=== PATIENT | male | born 1950 | race Two or more races ===

== ENCOUNTER 2019-01-22 20:17 | Inpatient (IN) | payer MEDICARE, OTHER ==
[~2019-01-22] VITALS: Ht 167.6 cm; Wt 72.6 kg
[~2019-01-22 20:17] MED LIST: ANTIVERT25 MG ORAL; NO HOME MEDS; ZOFRAN4 M1 ORAL
--- NOTE | 2019-01-22 20:20 | NUR ---
ED Nurse Note: Patient walked into ED accompanied by family member c/o urinary hesitancy that started today, patient states that he is having trouble to control his urine when he does start urinating, rates his pain a 9/10. patient provided a urine sampole which was cloudy, patient is alert and oriented x4, ambulatory with a steady gait, VSS
[2019-01-22 20:40] VITALS: BP 135/91
[2019-01-22] MEDS ORDERED: cefTRIAXone 2 GM in NS 110 ML IV SCH (21:00)
--- NOTE | 2019-01-22 21:09 | Emergency Room Report ---
History of Present Illness General Chief Complaint: Male Urogenital Problems Source: Patient Present Illness HPI Patient is a 60-year-old male presented after increased dysuria and urinary frequency. Patient had been noted to have increased discomfort during urination. He denies any vomiting. He reports having increased frequency as well as foul-smelling urine. He denies any flank pain. He had not been having any hematuria. He had onset of symptoms earlier in the day. Allergies: Coded Allergies: No Known Allergies (Unverified , 01/22/19) Patient History Past Medical History: see triage record Reviewed Nursing Documentation: PMH: Agreed; PSxH: Agreed Nursing Documentation-PMH Hx Hypertension: Yes Physical Exam Vital Signs Date Time Temp Pulse Resp B/P (MAP) Pulse Ox O2 Delivery O2 Flow Rate FiO2 01/22/19 20:37 98.4 92 16 135/91 (106) 94 Room Air Sp02 EP Interpretation: reviewed, normal General Appearance: normal inspection, well appearing, no apparent distress, alert, GCS 15 Head: atraumatic ENT: normal ENT inspection, hearing grossly normal, normal voice Neck: normal inspection, full range of motion, supple, no bony tend Respiratory: normal inspection, lungs clear, normal breath sounds, no respiratory distress, no retraction, no wheezing Cardiovascular #1: regular rate, rhythm, no edema Gastrointestinal: normal inspection, normal bowel sounds, non tender, soft, no guarding, no hernia Genitourinary: no CVA tenderness Musculoskeletal: normal inspection, back normal, normal range of motion Neurologic: normal inspection, alert, oriented x3, responsive, technology manager III-XII nml as tested, speech normal Psychiatric: normal inspection, judgement/insight normal, mood/affect normal Skin: normal inspection, normal color, no rash Medical Decision Making Diagnostic Impression: Primary Impression: Pyelonephritis ER Course Patient presented for dysuria. Differential diagnosis include was not limited to pyelonephritis, urinary tract infection, prostatitis among others. Because of patient's complexity laboratory testing was ordered. Patient does not appear to have any evidence of focal abdominal tenderness.CT imaging of the abdomen pelvis showed prostatic hypertrophy as well as bladder wall thickening consistent with a urinary infection. Patient was noted to have increased white blood count on laboratory testing. Urinalysis showed too numerous to count white blood cells in his urine. Patient was started on IV antibiotics. He was noted to be having some headache and symptomatology consistent with systemic illness. Patient be admitted for further evaluation and treatment of pyelonephritis. Dr. Andrzej Montesinos was contacted for inpatient management due to panel physician. Labs Test 01/22/19 21:17 White Blood Count 16.6 K/UL (4.8-10.8) Red Blood Count 4.58 M/UL (4.70-6.10) Hemoglobin 13.9 G/DL (14.2-18.0) Hematocrit 39.9 % (42.0-52.0) Mean Corpuscular Volume 87 FL (80-99) Mean Corpuscular Hemoglobin 30.4 PG (27.0-31.0) Mean Corpuscular Hemoglobin Concent 34.9 G/DL (32.0-36.0) Red Cell Distribution Width 11.4 % (11.6-14.8) Platelet Count 208 K/UL (150-450) Mean Platelet Volume 5.3 FL (6.5-10.1) Neutrophils (%) (Auto) 76.1 % (45.0-75.0) Lymphocytes (%) (Auto) 13.3 % (20.0-45.0) Monocytes (%) (Auto) 9.9 % (1.0-10.0) Eosinophils (%) (Auto) 0.1 % (0.0-3.0) Basophils (%) (Auto) 0.6 % (0.0-2.0) Urine Color Pale yellow Urine Appearance Cloudy Urine pH 7 (4.5-8.0) Urine Specific [place] 1.005 (1.005-1.035) Urine Protein 2+ (NEGATIVE) Urine Glucose (UA) Negative (NEGATIVE) Urine Ketones Negative (NEGATIVE) Urine Blood 5+ (NEGATIVE) Urine Nitrite Negative (NEGATIVE) Urine Bilirubin Negative (NEGATIVE) Urine Urobilinogen Normal MG/DL (0.0-1.0) Urine Leukocyte Esterase 3+ (NEGATIVE) Urine RBC 30-40 /HPF (0 - 0) Urine WBC Tntc /HPF (0 - 0) Urine Squamous Epithelial Cells None /LPF (NONE/OCC) Urine Bacteria Few /HPF (NONE) EKG Diagnostic Results Rate: normal Rhythm: NSR ST Segments: no acute changes Last Vital Signs Date Time Temp Pulse Resp B/P (MAP) Pulse Ox O2 Delivery O2 Flow Rate FiO2 01/22/19 20:37 98.4 92 16 135/91 (976) 94 Room Air Status: unchanged Disposition: ADMITTED INPATIENT Condition: Stable Alirio Aguilera MD Jan 22, 2019 21:09
[2019-01-22 21:41] LABS: BASOPHILS % (AUTO) 0.6 % (0.0-2.0); EOSINOPHILS % (AUTO) 0.1 % (0.0-3.0); HEMATOCRIT 39.9 % (42.0-52.0); HEMOGLOBIN 13.9 G/DL (14.2-18.0); LYMPHOCYTES % (AUTO) 13.3 % (20.0-45.0); MEAN CORPUSCULAR VOLUME 87 FL (80-99); MONOCYTES % (AUTO) 9.9 % (1.0-10.0); NEUTROPHILS % (AUTO) 76.1 % (45.0-75.0); PLATELET COUNT 208 K/UL (150-450); RED BLOOD COUNT 4.58 M/UL (4.70-6.10); RED CELL DISTRIBUTION WIDTH 11.4 % (11.6-14.8); WHITE BLOOD COUNT 16.6 K/UL (4.8-10.8)
[2019-01-22 21:43] LABS: APPEARANCE,URINE CLOUDY; BILIRUBIN, URINE NEGATIVE (NEGATIVE); COLOR,URINE PALE YELLOW; GLUCOSE, URINE (UA) NEGATIVE (NEGATIVE); KETONES,URINE NEGATIVE (NEGATIVE); LEUKOCYTE ESTERASE ,URINE 3+ (NEGATIVE); NITRITE,URINE NEGATIVE (NEGATIVE); PH,URINE 7 (4.5-8.0); PROTEIN,URINE 2+ (NEGATIVE); UROBILINOGEN,URINE NORMAL MG/DL (0.0-1.0)
[2019-01-22 22:08] LABS: ANION GAP 8 mmol/L (5-15); BLOOD UREA NITROGEN 15 mg/dL (7-18); CALCIUM 9.2 MG/DL (8.5-10.1); CARBON DIOXIDE 27 MMOL/L (21-32); CHLORIDE 98 MMOL/L (98-107); CREATININE 0.9 MG/DL (0.55-1.30); POTASSIUM 3.6 MMOL/L (3.5-5.1); SODIUM 133 MMOL/L (136-145)
[2019-01-22 22:13] LABS: ALANINE AMINOTRANSFERASE 24 U/L (12-78); ALBUMIN 3.9 G/DL (3.4-5.0); ALBUMIN/GLOBULIN RATIO 1.1 (1.0-2.7); ALKALINE PHOSPHATASE 83 U/L (46-116); ASPARTATE AMINO TRANSFERASE 21 U/L (15-37); BILIRUBIN,TOTAL 0.9 MG/DL (0.2-1.0); CKMB 1.2 NG/ML (0.0-3.6); CREATINE KINASE 185 U/L (26-308)
[2019-01-22 22:38] VITALS: BP 132/88
--- NOTE | 2019-01-22 22:38 | NUR ---
ED Nurse Note: PAtient in bed calm and relaxed, voided twice using urinal
--- NOTE | 2019-01-22 22:52 | Diagnostic Imaging Report ---
EXAM: CT Abdomen and Pelvis Without Intravenous Contrast CLINICAL HISTORY: PAIN TECHNIQUE: Axial computed tomography images of the abdomen and pelvis without intravenous contrast. CTDI is 12.2 mGy and DLP is 630 mGy-cm. One or more of the following dose reduction techniques were used: automated exposure control, adjustment of the mA and/or kV according to patient size, use of iterative reconstruction technique. COMPARISON: No relevant prior studies available. FINDINGS: There is prominent motion artifact limiting evaluation. Lack of contrast limits evaluation of viscera. Small hiatal hernia. Atelectasis and/or scar. No urinary tract calculi or hydronephrosis. There are some calcifications in region of the anterior bladder. Possible mural calcifications given these do not layer dependently. Small portion of the hepatic dome is not imaged. No evidence for acute pancreatitis or other acute abnormality of the unenhanced solid viscera is appreciated. There is some mild prostate enlargement. Soft tissue density projecting into the inferior bladder which is suspected to represent enlarged prostate. Prostate calcification. No bowel obstruction. Much of bowel underdistended limiting evaluation for mural thickening. No perienteric inflammatory change appreciated. Diverticulosis. No diverticulitis is appreciated. Questionable portion of normal appendix in the right lower quadrant though degree of confidence is not high and do not feel this exam is sufficient to exclude appendicitis. Nonspecific fluid in small bowel. Osseous degenerative changes. IMPRESSION: No definite acute process identified though there is prominent artifact limiting evaluation. Given degree of artifact, suggest clinical and/or imaging follow-up, as indicated.
[2019-01-22] MEDS ORDERED: Morphine Sulfate 2mg/ml Inj(IV/IM USE ONLY) IVP PRN (23:30)
[2019-01-23] VITALS (7 sets, daily range): BP systolic 107–132; BP diastolic 68–81
--- NOTE | 2019-01-23 00:59 | NUR ---
ED Nurse Note: patient's oral temp of 101.3, notified and aware of temp, will give tylenol
[2019-01-23] MEDS ORDERED: Acetaminophen 650mg/20.3ml NG ONE (01:00)
--- NOTE | 2019-01-23 01:10 | NUR ---
TRANSFER TO FLOOR: Patient transferred to Med Surg as ordered, report given to MARHSA Cook
--- NOTE | 2019-01-23 01:15 | NUR ---
NURSE NOTES: Patient came from ER via [facility]. Report from Ovidio LARSON. A&OX4. IV site patent and intact. Skin intact. Belongings are checked, patient has childs $110($20*5, $10*1), patient refused send safe. Bed in lowest position. Call light within reach. Will continue to monitor.
[2019-01-23] MEDS ORDERED: Morphine Sulfate 2mg/ml Inj(IV/IM USE ONLY) IVP PRN (05:15)
[2019-01-23] MEDS ORDERED: Miralax 17gm pkt ORAL PRN (05:15)
[2019-01-23] MEDS ORDERED: Albuterol/Ipratropium 3ml neb HHN PRN (05:15)
[2019-01-23] MEDS ORDERED: Vancomycin 1 GM in D5W 275 ML IVPB ONE (06:00)
--- NOTE | 2019-01-23 07:30 | NUR ---
HAND-OFF: Report given to Travis Alexis Rn.
[2019-01-23] MEDS: Cefepime HCl 2 GM in D5W 110 ML IV SCH ×2 (09:04→20:05)
[2019-01-23] MEDS: Heparin 5000 units/ml inj SUBQ SCH ×2 (09:13→20:06)
[2019-01-23] MEDS ORDERED: DIOVAN80 MG ORAL (10:29)
--- NOTE | 2019-01-23 10:59 | NUR ---
NURSE NOTES: PT'S FRIEND NETO BROUGHT IN HOME MEDICATION VALSARTAN 160MG PO 1 TABLET DAILY. SABRINA ALCANTAR NP, WITH ORDER TO CONTINUE AND HOLD FOR SBP<120. RN ENTERED ORDER AND SENT MEDICATION TO PHARMACY. RECEIPT NUMBER [id number]. RECEIPT PLACE IN PT'S CHART.
--- NOTE | 2019-01-23 11:00 | NUR ---
NURSE NOTES: RN USED [employer] ID# [id number] TO COMMUNICATE WITH PT. PT WAS EDUCATED ON ADMITTING DIAGNOSES, MEDICATION, AND PLAN OF CARE. PT DENIES PAIN AT THIS TIME. EDUCATED ON HOW TO USE CALL LIGHT FOR ASSISTANCE. IN NO APPARENT DISTRESS AT THIS TIME. WILL CONTINUE TO MONITOR.
[2019-01-23 12:31] LABS: APPEARANCE,URINE CLEAR; BILIRUBIN, URINE NEGATIVE (NEGATIVE); COLOR,URINE PALE YELLOW; GLUCOSE, URINE (UA) NEGATIVE (NEGATIVE); KETONES,URINE NEGATIVE (NEGATIVE); LEUKOCYTE ESTERASE ,URINE 1+ (NEGATIVE); NITRITE,URINE NEGATIVE (NEGATIVE); PH,URINE 7 (4.5-8.0); PROTEIN,URINE NEGATIVE (NEGATIVE); UROBILINOGEN,URINE NORMAL MG/DL (0.0-1.0)
--- NOTE | 2019-01-23 12:45 | History and Physical Report ---
DATE OF ADMISSION: 01/22/2019 TIME SEEN: 9 a.m. CONSULTANTS: 1. Glen Robles M.D. 2. Cuauhtemoc Hair M.D. CHIEF COMPLAINT: Dysuria, fever, and pyelonephritis. BRIEF HISTORY: The patient is a 68-year-old male, who lives at home, presents with the above-mentioned diagnosis, dysuria for a couple of days. The patient came, diagnosed with pyelonephritis and admitted to medical floor for further treatment. Currently, calm in bed. No complaint. No chest pain. No shortness of breath. No nausea, vomiting, or diarrhea. PAST MEDICAL HISTORY: Nothing. PAST SURGICAL HISTORY: None. MEDICATIONS: Include vancomycin, cefepime, heparin, morphine, Tylenol, and Zofran. ALLERGIES: Denies. SOCIAL HISTORY: No smoking. No alcohol. No intravenous drug abuse. FAMILY HISTORY: Noncontributory. PHYSICAL EXAMINATION: GENERAL: Calm in bed, oriented x3, no acute distress. VITAL SIGNS: Temperature is 97 degrees, pulse 79, respirations 18, blood pressure 109/69. CARDIOVASCULAR: No murmur. LUNGS: Distant and clear. ABDOMEN: Bowel sounds positive. Nontender and nondistended. EXTREMITIES: Showed no cyanosis, clubbing or edema. NEUROLOGIC: The patient moves all extremities, slightly weak. LABORATORY AND DIAGNOSTIC DATA: Labs at this time show white count 16, hemoglobin and hematocrit 13/39, platelets 208. BMP shows sodium 133, glucose 114. Albumin 3.9. Urinalysis show 3+ leukocyte esterase. ASSESSMENT: 1. UTI. 2. Pyelonephritis. 3. Fever. PLAN: 1. Antibiotics per Infectious Disease. 2. PT and dietary evaluation. 3. CBC and BMP in the morning. Andrzej Montesinos D.O. DR: RACHEL JOB#: [id number] CC:
--- NOTE | 2019-01-23 13:07 | Consultation ---
Consult Note Consult Note # [id number] Cuauhtemoc Hair MD Jan 23, 2019 13:07
--- NOTE | 2019-01-23 15:29 | Consultation ---
History of Present Illness General Date patient seen: Jan 23, 2019 Time patient seen: 11:00 Chief Complaint: Male Urogenital Problems Referring physician: dr Montesinos Reason for Consultation: inpatietn management Present Illness HPI 68 years old male with past medical history of hypertension , presented with complaints of dysuria and urinary frequency. Patient also reported foul-smelling urine and discomfort during urination. No flank pain. No fever, no chills , no vomiting. No hematuria . Vital signs reveal no fever. Laboratory work-up revealed significant leukocytosis WBC 16.6 , hemoglobin 13.9. Urinalysis with evidence of pyuria , +3 leukocyte esterase and few bacteria. CT of the abdomen and pelvis demonstrated no definite acute process. In emergency department patient pancultured, started on empiric antibiotic and admitted to Med Surg floor for further management. Allergies: Coded Allergies: No Known Allergies (Unverified , 01/22/19) Medication History Scheduled Valsartan (Diovan), 160 MG ORAL DAILY, (Reported) Scheduled PRN Ondansetron (Zofran), 4 MG ORAL Q6H PRN for Nausea & Vomiting, (Reported) Miscellaneous Medications [No Home Meds], (Reported) Discontinued Medications Meclizine Hcl* (Antivert*), 25 MG ORAL Q6HR, (Reported) Discontinued Reason: Pt stopped taking med Patient History History Provided By: Patient Healthcare decision maker Resuscitation status Full Code Advanced Directive on File Review of Systems Constitutional: Reports: weakness Eye: Reports: no symptoms ENT: Reports: no symptoms Respiratory: Reports: no symptoms Cardiovascular: Reports: no symptoms, other - Hx of HTN Gastrointestinal: Reports: no symptoms Genitourinary: Reports: see HPI Musculoskeletal: Reports: no symptoms Skin: Reports: no symptoms Psychiatric: Reports: no symptoms Neurological: Reports: no symptoms Endocrine: Reports: no symptoms Hematologic/Lymphatic: Reports: no symptoms Physical Exam General Appearance: WD/WN, no apparent distress, alert Lines, tubes and drains: peripheral HEENT: normocephalic, atraumatic, anicteric, mucous membranes moist Neck: non-tender, supple Respiratory/Chest: chest wall non-tender, lungs clear, no respiratory distress , no accessory muscle use Cardiovascular/Chest: normal peripheral pulses, normal rate, no JVD Abdomen: normal bowel sounds, non tender, soft Genitourinary/Rectal: other - no CVAT bilaterally Extremities: normal range of motion, no calf tenderness, normal capillary refill Skin Exam: warm/dry Neurologic: no motor/sensory deficits, alert, oriented x 3, responsive Musculoskeletal: normal muscle bulk Last 24 Hour Vital Signs Date Time Temp Pulse Resp B/P (MAP) Pulse Ox O2 Delivery O2 Flow Rate FiO2 01/23/19 12:00 98.7 80 20 127/70 (89) 96 01/23/19 09:00 Room Air 01/23/19 08:00 98.2 78 118/74 (89) 01/23/19 04:00 97.3 79 18 108/69 (82) 95 01/23/19 02:33 Room Air 01/23/19 01:30 98.1 88 18 122/74 (90) 95 01/23/19 01:10 101.0 86 18 132/68 95 Room Air 90 01/23/19 01:02 101.0 90 18 132/68 95 Room Air 01/23/19 01:00 101.0 01/22/19 22:38 98.4 86 16 132/88 94 Room Air 01/22/19 20:40 98.4 86 16 135/91 94 Room Air 01/22/19 20:37 98.4 92 16 135/91 (106) 94 Room Air Intake and Output 01/22/19 01/23/19 19:00 07:00 Intake Total 0 ml Balance 0 ml Intake Oral 0 ml # Voids 2 # Bowel Movements 1 Laboratory Tests Test 01/22/19 21:17 01/23/19 11:00 White Blood Count 16.6 K/UL (4.8-10.8) H Red Blood Count 4.58 M/UL (4.70-6.10) L Hemoglobin 13.9 G/DL (14.2-18.0) L Hematocrit 39.9 % (42.0-52.0) L Mean Corpuscular Volume 87 FL (80-99) Mean Corpuscular Hemoglobin 30.4 PG (27.0-31.0) Mean Corpuscular Hemoglobin Concent 34.9 G/DL (32.0-36.0) Red Cell Distribution Width 11.4 % (11.6-14.8) L Platelet Count 208 K/UL (150-450) Mean Platelet Volume 5.3 FL (6.5-10.1) L Neutrophils (%) (Auto) 76.1 % (45.0-75.0) H Lymphocytes (%) (Auto) 13.3 % (20.0-45.0) L Monocytes (%) (Auto) 9.9 % (1.0-10.0) Eosinophils (%) (Auto) 0.1 % (0.0-3.0) Basophils (%) (Auto) 0.6 % (0.0-2.0) Urine Color Pale yellow Pale yellow Urine Appearance Cloudy Clear Urine pH 7 (4.5-8.0) 7 (4.5-8.0) Urine Specific [place] 1.005 (1.005-1.035) 1.005 (1.005-1.035) Urine Protein 2+ (NEGATIVE) H Negative (NEGATIVE) Urine Glucose (UA) Negative (NEGATIVE) Negative (NEGATIVE) Urine Ketones Negative (NEGATIVE) Negative (NEGATIVE) Urine Blood 5+ (NEGATIVE) H 2+ (NEGATIVE) H Urine Nitrite Negative (NEGATIVE) Negative (NEGATIVE) Urine Bilirubin Negative (NEGATIVE) Negative (NEGATIVE) Urine Urobilinogen Normal MG/DL (0.0-1.0) Normal MG/DL (0.0-1.0) Urine Leukocyte Esterase 3+ (NEGATIVE) H 1+ (NEGATIVE) H Urine RBC 30-40 /HPF (0 - 0) H 0-2 /HPF (0 - 0) H Urine WBC Tntc /HPF (0 - 0) H 2-4 /HPF (0 - 0) Urine Squamous Epithelial Cells None /LPF (NONE/OCC) Occasional /LPF Urine Bacteria Few /HPF (NONE) Occasional /HPF (NONE) Sodium Level 133 MMOL/L (136-145) L Potassium Level 3.6 MMOL/L (3.5-5.1) Chloride Level 98 MMOL/L (98-107) Carbon Dioxide Level 27 MMOL/L (21-32) Anion Gap 8 mmol/L (5-15) Blood Urea Nitrogen 15 mg/dL (7-18) Creatinine 0.9 MG/DL (0.55-1.30) Estimat Glomerular Filtration Rate > 60 mL/min (>60) Glucose Level 114 MG/DL (74-106) H Lactic Acid Level 0.70 mmol/L (0.4-2.0) Calcium Level 9.2 MG/DL (8.5-10.1) Total Bilirubin 0.9 MG/DL (0.2-1.0) Aspartate Amino Transf (AST/SGOT) 21 U/L (15-37) Alanine Aminotransferase (ALT/SGPT) 24 U/L (12-78) Alkaline Phosphatase 83 U/L (46-116) Total Creatine Kinase 185 U/L (26-308) Creatine Kinase MB 1.2 NG/ML (0.0-3.6) Creatine Kinase MB Relative Index 0.6 Total Protein 7.3 G/DL (6.4-8.2) Albumin 3.9 G/DL (3.4-5.0) Globulin 3.4 g/dL Albumin/Globulin Ratio 1.1 (1.0-2.7) Height (Feet): 5 Height (Inches): 6.00 Weight (Pounds): 160 Medications Current Medications Medications (Trade) Dose Ordered Sig/Beltran Route PRN Reason Start Time Stop Time Status Last Admin Dose Admin Acetaminophen (Tylenol) 650 mg Q4H PRN ORAL fever 01/23/19 05:15 02/22/19 05:14 Albuterol/ Ipratropium (Albuterol/ Ipratropium) 3 ml Q4H PRN HHN Shortness of Breath 01/23/19 05:15 01/28/19 05:14 Cefepime HCl 2 gm/ Dextrose 110 ml @ 220 mls/hr EVERY 12 HOURS IV 01/23/19 09:00 01/30/19 08:59 01/23/19 09:04 Heparin Sodium (Porcine) (Heparin 5000 units/ml) 5,000 units EVERY 12 HOURS SUBQ 01/23/19 09:00 02/22/19 08:59 01/23/19 09:13 Losartan Potassium (Cozaar) 50 mg DAILY ORAL 01/24/19 14:30 02/23/19 14:29 UNV Morphine Sulfate (Morphine Sulfate) 2 mg Q4H PRN IVP Moderate Pain (Pain Scale 4-6) 01/23/19 05:15 01/30/19 05:14 Ondansetron HCl (Zofran) 4 mg Q6H PRN IVP Nausea & Vomiting 01/23/19 05:15 02/22/19 05:14 Phenazopyridine HCl (Pyridium) 100 mg DAILY PRN ORAL dysuria 01/23/19 05:15 02/22/19 05:14 Polyethylene Glycol (Miralax) 17 gm DAILYPRN PRN ORAL Constipation 01/23/19 05:15 02/22/19 05:14 Temazepam (Restoril) 15 mg HSPRN PRN ORAL Insomnia 01/23/19 05:15 01/30/19 05:14 Assessment/Plan Assessment/Plan: ASSESSMENT pyelonephritis leukocytosis HTN PLAN OF CARE MS floor empiric abx fup with CX ID on board Pyridium for comfort pain management a/emetic prn diet as tolerated DVT prophayxlis BP management with ARB bowel regimen supportive care case discussed and evaluated by supervising physician Rachna Zimmer NP Jan 23, 2019 15:29
[2019-01-23] MEDS ORDERED: Losartan 50mg tab ORAL SCH (16:00)
[2019-01-23] MEDS ORDERED: Vancomycin 750mg/NS 275ml IVPB SCH ×2 (18:00)
--- NOTE | 2019-01-23 18:45 | Consultation ---
DATE OF CONSULTATION: 01/23/2019 INFECTIOUS DISEASE CONSULTATION CONSULTING PHYSICIAN: Cuauhtemoc Hair M.D. REQUESTING PHYSICIAN: Andrzej Montesinos D.O. REASON FOR CONSULTATION: Evaluation of the patient for fever, leukocytosis, urinary tract infection, and pyelonephritis. HISTORY OF PRESENT ILLNESS: The patient is a 68-year-old male with multiple medical problems, as listed below, who was admitted to this medical center because of increase of urinary frequency associated with dysuria and fever. The patient was diagnosed with the impression of pyelonephritis. The patient complained of having a mild right flank tenderness. At the time of admission, the patient was found to have white blood cells 16. Infectious Disease consultation has been requested for further evaluation of the patient and antibiotic management. PAST MEDICAL HISTORY: Hypertension. MEDICATIONS: The patient has been started on IV cefepime and vancomycin. ALLERGIES: No known drug allergies. SOCIAL HISTORY: Negative for alcohol, drug abuse, or smoking. FAMILY HISTORY: Noncontributory. REVIEW OF SYSTEMS: A 10-point review of systems was done and except what has been mentioned above has been negative. PHYSICAL EXAMINATION: VITAL SIGNS: Temperature 101, pulse 86, blood pressure 127/70, and respiratory rate 18. HEENT: No pale conjunctivae. No icterus. NECK: No lymphadenopathy. CHEST: Clear. HEART: S1 and S2. ABDOMEN: Soft. Mild right flank tenderness. EXTREMITIES: No cyanosis. NEUROLOGIC: Awake. LABORATORY DATA: White blood cells 16.6, hemoglobin 13.9, and platelets 208,000. UA, too numerous to count white blood cells and 30 to 40 red blood cells. At the time of admission, BUN 15 and creatinine 0.5. ALT, AST, and alkaline phosphatase are unremarkable. CT of the abdomen, no significant findings. ASSESSMENT: The patient is a 68-year-old male with, 1. Fever. 2. Leukocytosis. 3. Urinary tract infection. 4. Pyelonephritis. 5. Rule out probable bacteremia. PLAN: 1. We will continue the patient on cefepime, hold vancomycin. 2. Monitor CBC. 3. Monitor BMP. 4. Monitor cultures (blood, urine). 5. Monitor chest x-ray. 6. Based on the patient's clinical course and labs, we will do further recommendations. Thank you, Dr. Montesinos, for allowing me to assist in the care of this patient. I will follow the patient with you during this hospitalization. Cuauhtemoc Hair M.D. DR: MAI JOB#: [id number] CC:
--- NOTE | 2019-01-23 19:24 | NUR ---
HAND-OFF: Report given to Viviana CRUZ RN.
--- NOTE | 2019-01-23 19:50 | NUR ---
NURSE NOTES: Received patient awake in bed, no s/s of acute distress, no c/o pain at this time. Urinal at the bedside. IV access asymptomatic, flushes easily, alcohol cap present. Fall and safety precautions taken.
[2019-01-24] VITALS: BP 109/75
[2019-01-24 04:00] VITALS: BP 115/73
[2019-01-24 06:54] LABS: ALANINE AMINOTRANSFERASE 26 U/L (12-78); ALBUMIN 2.9 G/DL (3.4-5.0); ALBUMIN/GLOBULIN RATIO 0.7 (1.0-2.7); ALKALINE PHOSPHATASE 72 U/L (46-116); ANION GAP 6 mmol/L (5-15); ASPARTATE AMINO TRANSFERASE 17 U/L (15-37); BILIRUBIN,TOTAL 0.5 MG/DL (0.2-1.0); BLOOD UREA NITROGEN 12 mg/dL (7-18); CALCIUM 9.2 MG/DL (8.5-10.1); CARBON DIOXIDE 29 MMOL/L (21-32); CHLORIDE 102 MMOL/L (98-107); CREATININE 0.9 MG/DL (0.55-1.30); POTASSIUM 3.9 MMOL/L (3.5-5.1); SODIUM 137 MMOL/L (136-145)
[2019-01-24 07:07] LABS: BASOPHILS % (AUTO) 0.4 % (0.0-2.0); EOSINOPHILS % (AUTO) 0.7 % (0.0-3.0); HEMATOCRIT 41.2 % (42.0-52.0); HEMOGLOBIN 13.8 G/DL (14.2-18.0); LYMPHOCYTES % (AUTO) 10.9 % (20.0-45.0); MEAN CORPUSCULAR VOLUME 91 FL (80-99); MONOCYTES % (AUTO) 8.1 % (1.0-10.0); NEUTROPHILS % (AUTO) 79.9 % (45.0-75.0); PLATELET COUNT 173 K/UL (150-450); RED BLOOD COUNT 4.52 M/UL (4.70-6.10); RED CELL DISTRIBUTION WIDTH 12.2 % (11.6-14.8); WHITE BLOOD COUNT 8.8 K/UL (4.8-10.8)
--- NOTE | 2019-01-24 07:14 | NUR ---
HAND-OFF: Report given to MARSHA Robles.
--- NOTE | 2019-01-24 07:55 | NUR ---
NURSE NOTES: Patient A/O x 3, forgetful. Denies pain. Voiding. VSS. no SOB. call light within reach, will continue to monitor.
[2019-01-24 08:00] VITALS: BP 130/73
[2019-01-24] MEDS: Losartan 50mg tab ORAL SCH (08:39)
[2019-01-24] MEDS: Heparin 5000 units/ml inj SUBQ SCH ×2 (08:42→20:34)
[2019-01-24] MEDS: Cefepime HCl 2 GM in D5W 110 ML IV SCH ×2 (09:35→20:33)
--- NOTE | 2019-01-24 10:08 | General Progress Note ---
Assessment/Plan Problem List: (1) Fever ICD Codes: R50.9 - Fever, unspecified SNOMED: 275117389 (2) Dizziness ICD Codes: R42 - Dizziness and giddiness SNOMED: 234727739 (3) Urinary tract infection ICD Codes: N39.0 - Urinary tract infection, site not specified SNOMED: 41826908 (4) Pyelonephritis ICD Codes: N12 - Tubulo-interstitial nephritis, not specified as acute or chronic SNOMED: 66365425 Status: stable, progressing Assessment/Plan: abx diet cbc bmp am Subjective Constitutional: Reports: weakness Allergies: Coded Allergies: No Known Allergies (Unverified , 01/22/19) All Systems: reviewed and negative except above Subjective sl gen pain Objective Last 24 Hour Vital Signs Date Time Temp Pulse Resp B/P (MAP) Pulse Ox O2 Delivery O2 Flow Rate FiO2 01/24/19 09:00 Room Air 01/24/19 08:39 130/73 01/24/19 08:00 97.9 77 18 130/73 (92) 98 01/24/19 05:40 99.0 01/24/19 04:00 100.3 82 18 115/73 (87) 96 01/24/19 00:00 99.2 80 18 109/75 (86) 96 01/23/19 21:55 Room Air 01/23/19 20:00 99.8 78 18 111/70 (84) 94 01/23/19 16:00 101.1 86 18 107/81 (90) 94 01/23/19 16:00 107/81 01/23/19 12:00 98.7 80 20 127/70 (89) 96 Intake and Output 01/23/19 01/24/19 19:00 07:00 Intake Total 930 ml 820 ml Balance 930 ml 820 ml Intake Oral 820 ml 820 ml IV Total 110 ml # Voids 8 2 # Bowel Movements 1 Laboratory Tests 01/23/19 11:00: Urine Color Pale yellow, Urine Appearance Clear, Urine pH 7, Urine Specific [place] 1.005, Urine Protein Negative, Urine Glucose (UA) Negative, Urine Ketones Negative, Urine Blood 2+H, Urine Nitrite Negative, Urine Bilirubin Negative, Urine Urobilinogen Normal, Urine Leukocyte Esterase 1+H, Urine RBC 0- 2H, Urine WBC 2-4, Urine Squamous Epithelial Cells Occasional, Urine Bacteria Occasional 01/24/19 05:50: White Blood Count 8.8, Red Blood Count 4.52L, Hemoglobin 13.8L, Hematocrit 41.2L , Mean Corpuscular Volume 91, Mean Corpuscular Hemoglobin 30.5, Mean Corpuscular Hemoglobin Concent 33.5, Red Cell Distribution Width 12.2, Platelet Count 173, Mean Platelet Volume 8.6, Neutrophils (%) (Auto) 79.9H, Lymphocytes ( %) (Auto) 10.9L, Monocytes (%) (Auto) 8.1, Eosinophils (%) (Auto) 0.7, Basophils (%) (Auto) 0.4, Sodium Level 137, Potassium Level 3.9, Chloride Level 102, Carbon Dioxide Level 29, Anion Gap 6, Blood Urea Nitrogen 12, Creatinine 0.9, Estimat Glomerular Filtration Rate > 60, Glucose Level 154H, Calcium Level 9.2, Total Bilirubin 0.5, Aspartate Amino Transf (AST/SGOT) 17, Alanine Aminotransferase (ALT/SGPT) 26, Alkaline Phosphatase 72, Total Protein 6.9, Albumin 2.9L, Globulin 4.0, Albumin/Globulin Ratio 0.7L Height (Feet): 5 Height (Inches): 6.00 Weight (Pounds): 160 General Appearance: lethargic EENT: normal ENT inspection Neck: normal alignment Cardiovascular: normal peripheral pulses, normal rate, regular rhythm Respiratory/Chest: chest wall non-tender, lungs clear, normal breath sounds Abdomen: normal bowel sounds, non tender, soft Extremities: normal inspection Edema: no edema noted Arm (L), no edema noted Arm (R), no edema noted Leg (L), no edema noted Leg (R), no edema noted Pedal (L), no edema noted Pedal (R), no edema noted Generalized Neurologic: responsive, motor weakness Skin: normal pigmentation, warm/dry Andrzej Montesinos DO Jan 24, 2019 10:08
--- NOTE | 2019-01-24 10:12 | Pulmonology Progress Note ---
Assessment/Plan Assessment/Plan ASSESSMENT pyelonephritis leukocytosis -resolved HTN PLAN OF CARE MS floor empiric abx fup with CX urine CX +GNB ID on board Pyridium for comfort pain management a/emetic prn diet as tolerated DVT prophayxlis BP management with ARB bowel regimen supportive care case discussed and evaluated by supervising physician Subjective Allergies: Coded Allergies: No Known Allergies (Unverified , 01/22/19) Subjective leukocytosis resolved, fever early this am denies abdominal pain, but reports some flank discomfort Objective Last 24 Hour Vital Signs Date Time Temp Pulse Resp B/P (MAP) Pulse Ox O2 Delivery O2 Flow Rate FiO2 01/24/19 09:00 Room Air 01/24/19 08:39 130/73 01/24/19 08:00 97.9 77 18 130/73 (92) 98 01/24/19 05:40 99.0 01/24/19 04:00 100.3 82 18 115/73 (87) 96 01/24/19 00:00 99.2 80 18 109/75 (86) 96 01/23/19 21:55 Room Air 01/23/19 20:00 99.8 78 18 111/70 (84) 94 01/23/19 16:00 101.1 86 18 107/81 (90) 94 01/23/19 16:00 107/81 01/23/19 12:00 98.7 80 20 127/70 (89) 96 Intake and Output 01/23/19 01/24/19 19:00 07:00 Intake Total 930 ml 820 ml Balance 930 ml 820 ml Intake Oral 820 ml 820 ml IV Total 110 ml # Voids 8 2 # Bowel Movements 1 Objective General Appearance: WD/WN, no apparent distress, alert Lines, tubes and drains: peripheral HEENT: normocephalic, atraumatic, anicteric, mucous membranes moist Neck: non-tender, supple Respiratory/Chest: chest wall non-tender, lungs clear, no respiratory distress , no accessory muscle use Cardiovascular/Chest: normal peripheral pulses, normal rate, no JVD Abdomen: normal bowel sounds, non tender, soft Genitourinary/Rectal: other - no CVAT bilaterally Extremities: normal range of motion, no calf tenderness, normal capillary refill Skin Exam: warm/dry Neurologic: no motor/sensory deficits, alert, oriented x 3, responsive Musculoskeletal: normal muscle bulk Microbiology Date/Time Source Procedure Growth Status 01/22/19 21:17 Blood Blood Culture - Preliminary NO GROWTH AFTER 24 HOURS Resulted 01/22/19 21:17 Blood Blood Culture - Preliminary NO GROWTH AFTER 24 HOURS Resulted 01/22/19 21:17 Urine,Clean Catch Urine Culture - Preliminary Gram Negative Bacillus 1 Resulted Laboratory Tests 01/23/19 11:00: Urine Color Pale yellow, Urine Appearance Clear, Urine pH 7, Urine Specific [place] 1.005, Urine Protein Negative, Urine Glucose (UA) Negative, Urine Ketones Negative, Urine Blood 2+H, Urine Nitrite Negative, Urine Bilirubin Negative, Urine Urobilinogen Normal, Urine Leukocyte Esterase 1+H, Urine RBC 0- 2H, Urine WBC 2-4, Urine Squamous Epithelial Cells Occasional, Urine Bacteria Occasional 01/24/19 05:50: White Blood Count 8.8, Red Blood Count 4.52L, Hemoglobin 13.8L, Hematocrit 41.2L , Mean Corpuscular Volume 91, Mean Corpuscular Hemoglobin 30.5, Mean Corpuscular Hemoglobin Concent 33.5, Red Cell Distribution Width 12.2, Platelet Count 173, Mean Platelet Volume 8.6, Neutrophils (%) (Auto) 79.9H, Lymphocytes ( %) (Auto) 10.9L, Monocytes (%) (Auto) 8.1, Eosinophils (%) (Auto) 0.7, Basophils (%) (Auto) 0.4, Sodium Level 137, Potassium Level 3.9, Chloride Level 102, Carbon Dioxide Level 29, Anion Gap 6, Blood Urea Nitrogen 12, Creatinine 0.9, Estimat Glomerular Filtration Rate > 60, Glucose Level 154H, Calcium Level 9.2, Total Bilirubin 0.5, Aspartate Amino Transf (AST/SGOT) 17, Alanine Aminotransferase (ALT/SGPT) 26, Alkaline Phosphatase 72, Total Protein 6.9, Albumin 2.9L, Globulin 4.0, Albumin/Globulin Ratio 0.7L Current Medications Medications (Trade) Dose Ordered Sig/Beltran Route PRN Reason Start Time Stop Time Status Last Admin Dose Admin Acetaminophen (Tylenol) 650 mg Q4H PRN ORAL fever 01/23/19 05:15 02/22/19 05:14 01/24/19 05:10 Albuterol/ Ipratropium (Albuterol/ Ipratropium) 3 ml Q4H PRN HHN Shortness of Breath 01/23/19 05:15 01/28/19 05:14 Cefepime HCl 2 gm/ Dextrose 110 ml @ 220 mls/hr EVERY 12 HOURS IV 01/23/19 09:00 01/30/19 08:59 01/24/19 09:35 Heparin Sodium (Porcine) (Heparin 5000 units/ml) 5,000 units EVERY 12 HOURS SUBQ 01/23/19 09:00 02/22/19 08:59 01/24/19 08:42 Losartan Potassium (Cozaar) 50 mg DAILY ORAL 01/24/19 09:00 02/23/19 08:59 01/24/19 08:39 Morphine Sulfate (Morphine Sulfate) 2 mg Q4H PRN IVP Moderate Pain (Pain Scale 4-6) 01/23/19 05:15 01/30/19 05:14 Ondansetron HCl (Zofran) 4 mg Q6H PRN IVP Nausea & Vomiting 01/23/19 05:15 02/22/19 05:14 Phenazopyridine HCl (Pyridium) 100 mg DAILY PRN ORAL dysuria 01/23/19 05:15 02/22/19 05:14 01/23/19 17:11 Polyethylene Glycol (Miralax) 17 gm DAILYPRN PRN ORAL Constipation 01/23/19 05:15 02/22/19 05:14 Temazepam (Restoril) 15 mg HSPRN PRN ORAL Insomnia 01/23/19 05:15 01/30/19 05:14 Valacyclovir HCl (Valtrex) 1,000 mg Q12HR ORAL 01/24/19 10:01 02/23/19 10:00 Rachna Zimmer NP Jan 24, 2019 10:12
[2019-01-24] MEDS: valACYclovir HCL 500mg tab ORAL SCH ×2 (10:30→20:33)
[2019-01-24 12:00] VITALS: BP 131/76
[2019-01-24] MEDS ORDERED: Losartan 50mg tab ORAL SCH (14:30)
[2019-01-24 16:00] VITALS: BP 120/79
--- NOTE | 2019-01-24 19:21 | NUR ---
HAND-OFF: Report given to Julisa LARSON.
--- NOTE | 2019-01-24 19:22 | NUR ---
NURSE NOTES: Patient A/O x 3, forgetful. Ivorian speaking. Denies pain. Voiding. VSS. no SOB. call light within reach, will continue to monitor.
--- NOTE | 2019-01-24 19:52 | NUR ---
CASE MANAGEMENT: INITIAL REVIEW 68 YO M PRESENTED TO ED FROM HOME CC: DYSURIA PMHx: HTN SI:PYELONEPHRITIS. T 98.4 HR 92 RR 16 B/P 135/91 SATS 94% ON RA WBC 16.6 NA 133 GLU 114 IS: CEFTRIAXONE IV X1 NS BOLUS X1 PATIENT ADMITTED TO TELE 01/22/2019 @ 2239 DCP:PATIENT TO BE DISCHARGED TO HOME ONCE MEDICALLY CLEARED. PLAN OF CARE: 1. Antibiotics per Infectious Disease. 2. PT and dietary evaluation. 01/23/2019 SI:PYELONEPHRITIS. T 101 HR 86 RR 18 B/P 132/68 SATS 95% ON RA NO LABS TODAY IS: CEFEPIME IV Q12H COZAAR PO QD VALTREX PO Q12H TELE STATUS DCP:PATIENT TO BE DISCHARGED TO HOME ONCE MEDICALLY CLEARED. PLAN OF CARE: 1. Antibiotics per Infectious Disease. 2. PT and dietary evaluation. 01/24/2019 SI:PYELONEPHRITIS. T 97.9 HR 77 RR 18 B/P 130/73 SATS 98% ON RA GLU 154 IS: CEFEPIME IV Q12H COZAAR PO QD VALTREX PO Q12H TELE STATUS DCP:PATIENT TO BE DISCHARGED TO HOME ONCE MEDICALLY CLEARED. PLAN OF CARE: 1. Antibiotics per Infectious Disease. 2. PT and dietary evaluation. Addendum: 01/25/19 at 1707 by Dariana Fountain CM [employer]
[2019-01-24 20:00] VITALS: BP 118/76
[2019-01-25] VITALS: BP 116/79
[2019-01-25 04:00] VITALS: BP 110/71
[2019-01-25 06:41] LABS: BASOPHILS % (AUTO) 0.9 % (0.0-2.0); EOSINOPHILS % (AUTO) 1.9 % (0.0-3.0); HEMATOCRIT 42.2 % (42.0-52.0); HEMOGLOBIN 14.5 G/DL (14.2-18.0); LYMPHOCYTES % (AUTO) 24.8 % (20.0-45.0); MEAN CORPUSCULAR VOLUME 91 FL (80-99); MONOCYTES % (AUTO) 12.1 % (1.0-10.0); NEUTROPHILS % (AUTO) 60.3 % (45.0-75.0); PLATELET COUNT 187 K/UL (150-450); RED BLOOD COUNT 4.65 M/UL (4.70-6.10); RED CELL DISTRIBUTION WIDTH 11.8 % (11.6-14.8)
[2019-01-25 06:49] LABS: ANION GAP 5 mmol/L (5-15); BLOOD UREA NITROGEN 8 mg/dL (7-18); CALCIUM 9.6 MG/DL (8.5-10.1); CARBON DIOXIDE 29 MMOL/L (21-32); CHLORIDE 103 MMOL/L (98-107); CREATININE 0.8 MG/DL (0.55-1.30); SODIUM 137 MMOL/L (136-145)
--- NOTE | 2019-01-25 07:07 | NUR ---
HAND-OFF: Report given to MARSHA Blackwood.
--- NOTE | 2019-01-25 07:29 | NUR ---
NURSE NOTES: Pt awake, A/o x 3, calm and cooperative. denies pain. Voiding without difficulties. no SOB. call light within reach. will continue to monitor.
[2019-01-25 08:46] VITALS: BP 108/66
[2019-01-25] MEDS: Losartan 50mg tab ORAL SCH (08:52)
[2019-01-25] MEDS: valACYclovir HCL 500mg tab ORAL SCH (08:53)
[2019-01-25] MEDS: Heparin 5000 units/ml inj SUBQ SCH (08:56)
[2019-01-25] MEDS: Cefepime HCl 2 GM in D5W 110 ML IV SCH (09:04)
--- NOTE | 2019-01-25 11:06 | NUR ---
*-* NO INSURANCE INFORMATION IN THE BAR UNABLE TO SEND CLINICALS OR REVIEWS *-*
[2019-01-25 12:00] VITALS: BP 117/60
--- NOTE | 2019-01-25 12:11 | General Progress Note ---
Assessment/Plan Problem List: (1) Fever ICD Codes: R50.9 - Fever, unspecified SNOMED: 113502192 (2) Dizziness ICD Codes: R42 - Dizziness and giddiness SNOMED: 324306974 (3) Urinary tract infection ICD Codes: N39.0 - Urinary tract infection, site not specified SNOMED: 45842895 (4) Pyelonephritis ICD Codes: N12 - Tubulo-interstitial nephritis, not specified as acute or chronic SNOMED: 84018801 Status: stable, progressing Assessment/Plan: abx diet dc if clear Subjective Constitutional: Reports: weakness Allergies: Coded Allergies: No Known Allergies (Unverified , 01/22/19) All Systems: reviewed and negative except above Subjective sleepy calm Objective Last 24 Hour Vital Signs Date Time Temp Pulse Resp B/P (MAP) Pulse Ox O2 Delivery O2 Flow Rate FiO2 01/25/19 09:00 Room Air 01/25/19 08:52 108/66 01/25/19 08:46 98.3 74 18 108/66 (80) 93 01/25/19 04:00 99.1 70 18 110/71 (84) 96 01/25/19 00:00 99.7 73 19 116/79 (91) 98 01/24/19 21:00 Room Air 01/24/19 20:00 100.2 76 19 118/76 (90) 97 01/24/19 16:00 97.8 68 19 120/79 (93) 100 Intake and Output 01/24/19 01/25/19 19:00 07:00 Intake Total 1010 ml 110 ml Output Total 1200 ml Balance 1010 ml -1090 ml IV Total 110 ml 110 ml Other 900 ml Output Urine Total 1200 ml # Voids 3 Laboratory Tests 01/25/19 05:20: White Blood Count 4.0#L, Red Blood Count 4.65L, Hemoglobin 14.5, Hematocrit 42.2 , Mean Corpuscular Volume 91, Mean Corpuscular Hemoglobin 31.2H, Mean Corpuscular Hemoglobin Concent 34.4, Red Cell Distribution Width 11.8, Platelet Count 187, Mean Platelet Volume 7.5, Neutrophils (%) (Auto) 60.3, Lymphocytes (% ) (Auto) 24.8, Monocytes (%) (Auto) 12.1H, Eosinophils (%) (Auto) 1.9, Basophils (%) (Auto) 0.9, Sodium Level 137, Potassium Level 4.0, Chloride Level 103, Carbon Dioxide Level 29, Anion Gap 5, Blood Urea Nitrogen 8, Creatinine 0.8 , Estimat Glomerular Filtration Rate > 60, Glucose Level 112H, Calcium Level 9.6 Height (Feet): 5 Height (Inches): 6.00 Weight (Pounds): 160 General Appearance: lethargic EENT: normal ENT inspection Neck: normal alignment Cardiovascular: normal peripheral pulses, normal rate, regular rhythm Respiratory/Chest: chest wall non-tender, lungs clear, normal breath sounds Abdomen: normal bowel sounds, non tender, soft Extremities: normal inspection Edema: no edema noted Arm (L), no edema noted Arm (R), no edema noted Leg (L), no edema noted Leg (R), no edema noted Pedal (L), no edema noted Pedal (R), no edema noted Generalized Neurologic: motor weakness Skin: normal pigmentation, warm/dry Andrzej Montesinos DO Jan 25, 2019 12:11
--- NOTE | 2019-01-25 13:55 | Infectious Diseases Prog Note ---
Assessment/Plan Assessment/Plan The patient is a 68-year-old male with, 1. Fever. 2. Leukocytosis. 3. Urinary tract infection. 4. Pyelonephritis. 5. Rule out probable bacteremia. PLAN: -Start Cephalexin 500mg BID #/ -D/C cefepime #3 -S/P vancomycin #1. -Monitor CBC. -Monitor BMP. Subjective Allergies: Coded Allergies: No Known Allergies (Unverified , 01/22/19) Subjective Afebrile No leukocytosis Objective Vital Signs Last 24 Hour Vital Signs Date Time Temp Pulse Resp B/P (MAP) Pulse Ox O2 Delivery O2 Flow Rate FiO2 01/25/19 12:00 98.7 77 18 117/60 (79) 93 01/25/19 09:00 Room Air 01/25/19 08:52 108/66 01/25/19 08:46 98.3 74 18 108/66 (80) 93 01/25/19 04:00 99.1 70 18 110/71 (84) 96 01/25/19 00:00 99.7 73 19 116/79 (91) 98 01/24/19 21:00 Room Air 01/24/19 20:00 100.2 76 19 118/76 (90) 97 01/24/19 16:00 97.8 68 19 120/79 (93) 100 Height (Feet): 5 Height (Inches): 6.00 Weight (Pounds): 160 Objective HEENT: NCAT, MMM. CHEST: CTAB, No W HEART: RRR, S1 and S2. ABDOMEN: Soft. NT, ND NEUROLOGIC: Awake. and following Microbiology Date/Time Source Procedure Growth Status 01/23/19 09:20 Blood Blood Culture - Preliminary NO GROWTH AFTER 24 HOURS Resulted 01/23/19 09:10 Blood Blood Culture - Preliminary NO GROWTH AFTER 24 HOURS Resulted 01/22/19 21:17 Blood Blood Culture - Preliminary NO GROWTH AFTER 48 HOURS Resulted 01/22/19 21:17 Blood Blood Culture - Preliminary NO GROWTH AFTER 48 HOURS Resulted 01/22/19 21:17 Urine,Clean Catch Urine Culture - Final Escherichia Coli Complete Laboratory Tests Test 01/25/19 05:20 White Blood Count 4.0 K/UL (4.8-10.8) #L Red Blood Count 4.65 M/UL (4.70-6.10) L Hemoglobin 14.5 G/DL (14.2-18.0) Hematocrit 42.2 % (42.0-52.0) Mean Corpuscular Volume 91 FL (80-99) Mean Corpuscular Hemoglobin 31.2 PG (27.0-31.0) H Mean Corpuscular Hemoglobin Concent 34.4 G/DL (32.0-36.0) Red Cell Distribution Width 11.8 % (11.6-14.8) Platelet Count 187 K/UL (150-450) Mean Platelet Volume 7.5 FL (6.5-10.1) Neutrophils (%) (Auto) 60.3 % (45.0-75.0) Lymphocytes (%) (Auto) 24.8 % (20.0-45.0) Monocytes (%) (Auto) 12.1 % (1.0-10.0) H Eosinophils (%) (Auto) 1.9 % (0.0-3.0) Basophils (%) (Auto) 0.9 % (0.0-2.0) Sodium Level 137 MMOL/L (136-145) Potassium Level 4.0 MMOL/L (3.5-5.1) Chloride Level 103 MMOL/L (98-107) Carbon Dioxide Level 29 MMOL/L (21-32) Anion Gap 5 mmol/L (5-15) Blood Urea Nitrogen 8 mg/dL (7-18) Creatinine 0.8 MG/DL (0.55-1.30) Estimat Glomerular Filtration Rate > 60 mL/min (>60) Glucose Level 112 MG/DL (74-106) H Calcium Level 9.6 MG/DL (8.5-10.1) Current Medications Medications (Trade) Dose Ordered Sig/Beltran Route PRN Reason Start Time Stop Time Status Last Admin Dose Admin Acetaminophen (Tylenol) 650 mg Q4H PRN ORAL fever 01/23/19 05:15 02/22/19 05:14 01/24/19 05:10 Albuterol/ Ipratropium (Albuterol/ Ipratropium) 3 ml Q4H PRN HHN Shortness of Breath 01/23/19 05:15 01/28/19 05:14 Cefepime HCl 2 gm/ Dextrose 110 ml @ 220 mls/hr EVERY 12 HOURS IV 01/23/19 09:00 01/30/19 08:59 01/25/19 09:04 Heparin Sodium (Porcine) (Heparin 5000 units/ml) 5,000 units EVERY 12 HOURS SUBQ 01/23/19 09:00 02/22/19 08:59 01/25/19 08:56 Losartan Potassium (Cozaar) 50 mg DAILY ORAL 01/24/19 09:00 02/23/19 08:59 01/24/19 08:39 Morphine Sulfate (Morphine Sulfate) 2 mg Q4H PRN IVP Moderate Pain (Pain Scale 4-6) 01/23/19 05:15 01/30/19 05:14 Ondansetron HCl (Zofran) 4 mg Q6H PRN IVP Nausea & Vomiting 01/23/19 05:15 02/22/19 05:14 Phenazopyridine HCl (Pyridium) 100 mg DAILY PRN ORAL dysuria 01/23/19 05:15 02/22/19 05:14 01/25/19 08:53 Polyethylene Glycol (Miralax) 17 gm DAILYPRN PRN ORAL Constipation 01/23/19 05:15 02/22/19 05:14 Temazepam (Restoril) 15 mg HSPRN PRN ORAL Insomnia 01/23/19 05:15 01/30/19 05:14 Valacyclovir HCl (Valtrex) 1,000 mg Q12HR ORAL 01/24/19 10:01 02/23/19 10:00 01/25/19 08:53 Andrew Cristobal MD Jan 25, 2019 13:55
--- NOTE | 2019-01-25 14:31 | Pulmonology Progress Note ---
Assessment/Plan Problems: (1) Urinary tract infection (2) Fever (3) Pyelonephritis Assessment/Plan empiric abx fup with CX urine CX +GNB ID on board Pyridium for comfort pain management a/emetic prn diet as tolerated DVT prophayxlis BP management with ARB bowel regimen supportive care Subjective ROS Limited/Unobtainable: No Constitutional: Reports: no symptoms HEENT: Repors: no symptoms Allergies: Coded Allergies: No Known Allergies (Unverified , 01/22/19) Objective Last 24 Hour Vital Signs Date Time Temp Pulse Resp B/P (MAP) Pulse Ox O2 Delivery O2 Flow Rate FiO2 01/25/19 12:00 98.7 77 18 117/60 (79) 93 01/25/19 09:00 Room Air 01/25/19 08:52 108/66 01/25/19 08:46 98.3 74 18 108/66 (80) 93 01/25/19 04:00 99.1 70 18 110/71 (84) 96 01/25/19 00:00 99.7 73 19 116/79 (91) 98 01/24/19 21:00 Room Air 01/24/19 20:00 100.2 76 19 118/76 (90) 97 01/24/19 16:00 97.8 68 19 120/79 (93) 100 Intake and Output 01/24/19 01/25/19 19:00 07:00 Intake Total 1010 ml 110 ml Output Total 1200 ml Balance 1010 ml -1090 ml IV Total 110 ml 110 ml Other 900 ml Output Urine Total 1200 ml # Voids 3 General Appearance: WD/WN HEENT: normocephalic, atraumatic Respiratory/Chest: chest wall non-tender, normal breath sounds Cardiovascular: normal peripheral pulses, normal rate, regular rhythm Abdomen: normal bowel sounds, soft, non tender Genitourinary: normal external genitalia Skin: no rash, no lesions Microbiology Date/Time Source Procedure Growth Status 01/23/19 09:20 Blood Blood Culture - Preliminary NO GROWTH AFTER 24 HOURS Resulted 01/23/19 09:10 Blood Blood Culture - Preliminary NO GROWTH AFTER 24 HOURS Resulted 01/22/19 21:17 Blood Blood Culture - Preliminary NO GROWTH AFTER 48 HOURS Resulted 01/22/19 21:17 Blood Blood Culture - Preliminary NO GROWTH AFTER 48 HOURS Resulted 01/22/19 21:17 Urine,Clean Catch Urine Culture - Final Escherichia Coli Complete Laboratory Tests 01/25/19 05:20: White Blood Count 4.0#L, Red Blood Count 4.65L, Hemoglobin 14.5, Hematocrit 42.2 , Mean Corpuscular Volume 91, Mean Corpuscular Hemoglobin 31.2H, Mean Corpuscular Hemoglobin Concent 34.4, Red Cell Distribution Width 11.8, Platelet Count 187, Mean Platelet Volume 7.5, Neutrophils (%) (Auto) 60.3, Lymphocytes (% ) (Auto) 24.8, Monocytes (%) (Auto) 12.1H, Eosinophils (%) (Auto) 1.9, Basophils (%) (Auto) 0.9, Sodium Level 137, Potassium Level 4.0, Chloride Level 103, Carbon Dioxide Level 29, Anion Gap 5, Blood Urea Nitrogen 8, Creatinine 0.8 , Estimat Glomerular Filtration Rate > 60, Glucose Level 112H, Calcium Level 9.6 Current Medications Medications (Trade) Dose Ordered Sig/Beltran Route PRN Reason Start Time Stop Time Status Last Admin Dose Admin Acetaminophen (Tylenol) 650 mg Q4H PRN ORAL fever 01/23/19 05:15 02/22/19 05:14 01/24/19 05:10 Albuterol/ Ipratropium (Albuterol/ Ipratropium) 3 ml Q4H PRN HHN Shortness of Breath 01/23/19 05:15 01/28/19 05:14 Cephalexin (Keflex) 500 mg Q12HR ORAL 01/25/19 21:00 02/01/19 20:59 Heparin Sodium (Porcine) (Heparin 5000 units/ml) 5,000 units EVERY 12 HOURS SUBQ 01/23/19 09:00 02/22/19 08:59 01/25/19 08:56 Losartan Potassium (Cozaar) 50 mg DAILY ORAL 01/24/19 09:00 02/23/19 08:59 01/24/19 08:39 Morphine Sulfate (Morphine Sulfate) 2 mg Q4H PRN IVP Moderate Pain (Pain Scale 4-6) 01/23/19 05:15 01/30/19 05:14 Ondansetron HCl (Zofran) 4 mg Q6H PRN IVP Nausea & Vomiting 01/23/19 05:15 02/22/19 05:14 Phenazopyridine HCl (Pyridium) 100 mg DAILY PRN ORAL dysuria 01/23/19 05:15 02/22/19 05:14 01/25/19 08:53 Polyethylene Glycol (Miralax) 17 gm DAILYPRN PRN ORAL Constipation 01/23/19 05:15 02/22/19 05:14 Temazepam (Restoril) 15 mg HSPRN PRN ORAL Insomnia 01/23/19 05:15 01/30/19 05:14 Valacyclovir HCl (Valtrex) 1,000 mg Q12HR ORAL 01/24/19 10:01 02/23/19 10:00 01/25/19 08:53 Glen Robles MD Jan 25, 2019 14:31
--- NOTE | 2019-01-25 16:31 | NUR ---
NURSE NOTES: Pt refused VS at 1600. Education provided. will continue to monitor.
[2019-01-25 16:35] VITALS: BP 117/78
--- NOTE | 2019-01-25 18:18 | NUR ---
NURSE NOTES: Received order to DC pt. pt awake, A/O x 4, calm. denies pain. VSS. DC instruction given, verbalize understanding. friend Laureen Norm at bedside , will take pt home, belongings with pt.
[2019-01-25] MEDS ORDERED: Cephalexin 500mg cap ORAL SCH (21:00)
--- NOTE | 2019-01-26 09:52 | Discharge Summary ---
Discharge Summary Discharge Summary _ DATE OF ADMISSION: 01/22/2019 DATE OF DISCHARGE: 01/25/2019 DISCHARGED BY: Dr Montesinos REASON FOR ADMISSION: 68 years old male, with past medical history of hypertension, presented with complaint of dysuria and urinary frequency. Patient reported foul-smelling urine and discomfort during urination. Patient denied fever , chills, vomiting. No hematuria, no flank pain. Upon evaluation vital signs revealed no fever. Laboratory work-up revealed significant leukocytosis with WBC 16.6. Urinalysis revealed evidence of pyuria and +[address] of the abdomen and pelvis demonstrated no acute process , however prominent artifact was limited evaluation. Given degree of artifact, suggested clinical and /or imaging follow-up as indicated. In emergency department patient was pancultured , started on empiric antibiotic and admitted to medical surgical floor for further management. CONSULTANTS: pulmonary/critical care Dr. Robles ID specialist Dr. Hair [facility]: Patient admitted to medical surgical floor. Patient started on empiric antibiotic. ID specialist followed. Initially patient had no fever , but the next day he developed fever which continued intermittently till 01/24 . Pyridium provided for comfort. Pain management was addressed as needed. Antiemetic provided as needed. Patient started on diet as tolerated and was able to tolerate diet. DVT prophylaxis provided. Blood pressure was managed with angiotensin receptor rosie and remained stable. Bowel regimen instituted. Supportive care provided. Urine culture revealed E. coli. Blood culture, initial and repeated, were negative. Leukocytosis resolved. No further fevers. ID specialist changed IV antibiotics to oral Keflex and recommended to continue treatment for additional 5 days as outpatient. Patient was stable for discharge FINAL DIAGNOSES: Pyelonephritis with E coli Leukocytosis- resolved Hypertension DISCHARGE MEDICATIONS: See Medication Reconciliation list. DISCHARGE INSTRUCTIONS: Patient was discharged home . Follow up with primary care provider in one week. Rachna Zimmer NP Jan 26, 2019 09:52
== END 2019-01-25 18:22 | disposition home or self-care (01) | DRG 690 ==
LOC: EMR 21:06 → 4E 22:35 → EDBEDREQ 23:38
DX: N10 Acute pyelonephritis (principal); B96.20 Unspecified Escherichia coli [E. coli] as the cause of diseases classified elsewhere; I10 Essential (primary) hypertension; R42 Dizziness and giddiness
CPT/HCPCS: 36415; 74176; 80048; 80053; 81001; 81003; 82550; 82553; 83605; 85025; 87040; 87086; 87181; 96361; 96365; 99285

== ENCOUNTER 2019-11-15 11:29 | Emergency (ER) | payer MEDICARE, OTHER ==
[~2019-11-15] VITALS: Ht 160 cm; Wt 70.3 kg
[~2019-11-15 11:29] MED LIST changes: +DIOVAN80 MG ORAL
[2019-11-15 11:47] VITALS: BP 140/90
--- NOTE | 2019-11-15 11:48 | NUR ---
ED Nurse Note: Patient walked in to ER c/o painfull voiding, stated noted blood in his urine x 3 days. Patient presented anxious, turkish speaking only, stated has pain 10/10 righ now, AAO x4, VSS at this time, skin is warm, to touch.
[2019-11-15] MEDS ORDERED: LEVOFLOXACIN500 MG ORAL (12:05)
[2019-11-15] MEDS ORDERED: PHENAZOPYRIDIN200 MG ORAL (12:05)
--- NOTE | 2019-11-15 12:17 | NUR ---
ED Nurse Note: Pt cleared by health care Provider for discharge. DC instructions/prescription was given and explained to pt and verbalized understanding of teachings. All medical deviecs such as ID band removed. Pt is AAO x4, ambulatory and left with all personal belongings.
[2019-11-15 12:40] LABS: APPEARANCE,URINE CLOUDY; BILIRUBIN, URINE NEGATIVE (NEGATIVE); COLOR,URINE PALE YELLOW; GLUCOSE, URINE (UA) NEGATIVE (NEGATIVE); KETONES,URINE NEGATIVE (NEGATIVE); NITRITE,URINE NEGATIVE (NEGATIVE); UROBILINOGEN,URINE NORMAL MG/DL (0.0-1.0)
[2019-11-15 12:46] LABS: LEUKOCYTE ESTERASE ,URINE 3+ (NEGATIVE); PH,URINE 5 (4.5-8.0); PROTEIN,URINE 3+ (NEGATIVE)
--- NOTE | 2019-11-16 06:57 | Emergency Room Report ---
History of Present Illness General Chief Complaint: Male Urogenital Problems Source: Patient Present Illness HPI Patient is a 69-year-old male who presents after increased dysuria and hematuria. Reports having small amount of blood termination of urination. Denies any history of prostate cancer. Had not been having any fever. Denies any vomiting. Denies any flank pain. Denies any flank pain. Does report having some suprapubic pain. Denies any penile discharge. Allergies: Coded Allergies: No Known Allergies (Unverified , 01/22/19) COVID-19 Screening Contact w/high risk pt: No Recent Travel to affected area: No Experienced COVID-19 symptoms?: No Patient History Past Medical History: see triage record Reviewed Nursing Documentation: PMH: Agreed; PSxH: Agreed Nursing Documentation-PMH Hx Cardiac Problems: Yes Hx Hypertension: Yes Hx Cancer: No Hx Gastrointestinal Problems: Yes Hx Neurological Problems: No Review of Systems All Other Systems: negative except mentioned in HPI Physical Exam Vital Signs Date Time Temp Pulse Resp B/P (MAP) Pulse Ox O2 Delivery O2 Flow Rate FiO2 11/15/19 11:37 98.6 81 18 140/90 (107) 94 Room Air Sp02 EP Interpretation: reviewed, normal General Appearance: normal inspection, well appearing, no apparent distress, alert Head: atraumatic ENT: normal ENT inspection, hearing grossly normal, normal voice Neck: normal inspection, full range of motion, supple, no bony tend Respiratory: normal inspection, lungs clear, normal breath sounds, no respiratory distress, no retraction, no wheezing Cardiovascular #1: normal inspection, regular rate, rhythm, no edema Gastrointestinal: normal inspection, normal bowel sounds, non tender, soft, no guarding, no hernia Genitourinary: no CVA tenderness Musculoskeletal: normal inspection, back normal, normal range of motion Neurologic: alert, motor strength/tone normal, 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 Differential diagnosis include was not limited to urinary tract infection, prostatitis, prostate cancer, pyelonephritis among others. Patient has a benign exam and does not appear to require any imaging or laboratory testing at this time. Patient appears to have some evidence of hematuria and will be given empiric treatment for prostatitis. He was advised to follow-up with primary care physician for recheck and possible referral to urology. He was advised to return if any worsening. The patient is advised to follow up with primary care doctor in 1-2 days. Patient is advised to return if any worsening condition or if any changes in status that are concerning. This report is dictated with [employer] [place] coroner software which may occasionally lead to discrepancies related to use of this software. Labs Test 11/15/19 11:54 Urine Color Pale yellow Urine Appearance Cloudy Urine pH 5 (4.5-8.0) Urine Specific [place] 1.015 (1.005-1.035) Urine Protein 3+ (NEGATIVE) Urine Glucose (UA) Negative (NEGATIVE) Urine Ketones Negative (NEGATIVE) Urine Blood 5+ (NEGATIVE) Urine Nitrite Negative (NEGATIVE) Urine Bilirubin Negative (NEGATIVE) Urine Urobilinogen Normal MG/DL (0.0-1.0) Urine Leukocyte Esterase 3+ (NEGATIVE) Urine RBC Tntc /HPF (0 - 0) Urine WBC Tntc /HPF (0 - 0) Urine Squamous Epithelial Cells Occasional /LPF Urine Bacteria Moderate /HPF (NONE) Last Vital Signs Date Time Temp Pulse Resp B/P (MAP) Pulse Ox O2 Delivery O2 Flow Rate FiO2 11/15/19 12:16 98.6 83 18 140/90 94 Room Air Status: improved Disposition: HOME, SELF-CARE Condition: Stable Scripts Levofloxacin (LEVOFLOXACIN*) 500 Mg Tablet 500 MG ORAL DAILY, #14 TAB Prov: Alirio Aguilera MD 11/15/19 Phenazopyridine Hcl* (PYRIDIUM*) 200 Mg Tablet 200 MG ORAL THREE TIMES A DAY, #14 TAB 0 Refills Prov: Alirio Aguilera MD 11/15/19 Referrals: NON PHYSICIAN (PCP) Patient Instructions: Urethritis, Adult Alirio Aguilera MD Nov 16, 2019 06:57
== END 2019-11-15 12:17 | disposition home or self-care (01) ==
LOC: EMR 12:15
DX: N39.0 Urinary tract infection, site not specified (principal); R31.9 Hematuria, unspecified; R33.9 Retention of urine, unspecified; I10 Essential (primary) hypertension
CPT/HCPCS: 81003; 87086; 87181; 99283

== ENCOUNTER 2020-08-29 10:46 | Inpatient (IN) | payer MEDICARE, OTHER ==
[~2020-08-29] VITALS: Ht 170.2 cm; Wt 70.8 kg
[~2020-08-29 10:46] MED LIST changes: +LEVOFLOXACIN500 MG ORAL; +PHENAZOPYRIDIN200 MG ORAL
[2020-08-29 12:00] VITALS: BP 114/68
--- NOTE | 2020-08-29 12:00 | NUR ---
ED Nurse Note: Pt walked into ED w/ cough for 2 weeks. Caregiver is present. Pt denies bodyaches, chills, fever. Pt O2 is 90%, set up on 2L NC. Pt is alert and orientedx4, ambulatory. Pt is set up on monitor in Ortho room. IV estbalished and blood drawn and sent.
[2020-08-29 12:16] LABS: BASOPHILS % (AUTO) 0.3 % (0.0-2.0); EOSINOPHILS % (AUTO) 1.5 % (0.0-3.0); HEMATOCRIT 41.1 % (42.0-52.0); HEMOGLOBIN 13.6 G/DL (14.2-18.0); LYMPHOCYTES % (AUTO) 17.6 % (20.0-45.0); MEAN CORPUSCULAR VOLUME 90 FL (80-99); MONOCYTES % (AUTO) 6.9 % (1.0-10.0); NEUTROPHILS % (AUTO) 73.8 % (45.0-75.0); PLATELET COUNT 545 K/UL (150-450); RED BLOOD COUNT 4.58 M/UL (4.70-6.10); RED CELL DISTRIBUTION WIDTH 11.8 % (11.6-14.8); WHITE BLOOD COUNT 5.2 K/UL (4.8-10.8)
--- NOTE | 2020-08-29 12:23 | Emergency Room Report ---
History of Present Illness General Chief Complaint: Upper Respiratory Illness Source: Patient Present Illness HPI 70-year-old male presents for evaluation. Complaining of cough for 2 weeks. Body aches. O2 sat in triage low. Denies shortness of breath. Denies sick contacts. No other aggravating relieving factors. Denies any other associated symptoms Allergies: Coded Allergies: No Known Allergies (Unverified , 01/22/19) COVID-19 Screening Contact w/high risk pt: No Recent Travel to affected area: No Experienced COVID-19 symptoms?: No COVID-19 Testing performed DIVING INSTRUCTOR: No Patient History Past Medical History: HTN Past Surgical History: none Pertinent Family History: none Social History: Denies: smoking, alcohol use, drug use Immunizations: UTD Reviewed Nursing Documentation: PMH: Agreed; PSxH: Agreed Nursing Documentation-PMH Hx Cardiac Problems: Yes Hx Hypertension: Yes Hx Cancer: No Hx Gastrointestinal Problems: Yes Hx Neurological Problems: No Review of Systems All Other Systems: negative except mentioned in HPI Physical Exam Vital Signs Date Time Temp Pulse Resp B/P (MAP) Pulse Ox O2 Delivery O2 Flow Rate FiO2 08/29/20 11:11 98.4 93 20 103/70 (81) 90 Room Air Sp02 EP Interpretation: reviewed, normal General Appearance: no apparent distress, alert, GCS 15, non-toxic Head: normocephalic, atraumatic Eyes: bilateral eye normal inspection, bilateral eye PERRL ENT: hearing grossly normal, normal pharynx, no angioedema, normal voice Neck: full range of motion, supple/symm/no masses Respiratory: chest non-tender, lungs clear, normal breath sounds, speaking full sentences Cardiovascular #1: regular rate, rhythm, no edema Cardiovascular #2: 2+ carotid (R), 2+ carotid (L), 2+ radial (R), 2+ radial (L), 2+ dorsalis pedis (R), 2+ dorsalis pedis (L) Gastrointestinal: normal bowel sounds, non tender, soft, non-distended, no guarding, no rebound Rectal: deferred Genitourinary: normal inspection, no CVA tenderness Musculoskeletal: back normal, normal range of motion, gait/station normal, non- tender Neurologic: alert, motor strength/tone normal, oriented x3, sensory intact, responsive, speech normal Psychiatric: judgement/insight normal, memory normal, mood/affect normal, no suicidal/homicidal ideation Reflexes: 3+ bicep (R), 3+ bicep (L), 3+ tricep (R), 3+ tricep (L), 3+ knee (R), 3+ knee (L) Lymphatic: no adenopathy Medical Decision Making Diagnostic Impression: Primary Impression: Pneumonia due to COVID-19 virus ER Course Hospital Course 70-year-old male presents with cough, low O2 sat Differential diagnoses include: Pneumonia, CHF exacerbation, pneumothorax, fluid overload Clinical course Patient placed on stretcher. Isolation. I wore full PPE. On campus monitor with hypoxia on room air. After initial history and physical, I ordered labs, IV fluids, EKG, chest x-ray, blood cultures. Patient placed on nasal cannula with O2 saturation improving rapid COVID+ Labs -no leukocytosis, hemoglobin/hematocrit stable, electrolytes okay, D-dimer elevated, inflammatory markers elevated CXR -patchy bilateral opacities O2 sats improved with nasal cannula. No signs of respiratory distress. No tachypnea. Given Decadron. Given Lovenox. Antibiotics started. Case discussed with Dr. Vo and he agreed to the patient to his service for further care and support I feel this is a highly complex case requiring extensive working including EKG/Rhythm strip, Xray/CT/US, Blood/urine lab work, repeat exams while in ED, and administration of strong opiates/narcotics for pain control, admission to hospital or close patient follow up. Diagnosis - pneumonia due to COVID19 Patient admitted to floor in serious condition Labs Test 08/29/20 11:46 08/30/20 04:00 08/31/20 04:00 08/31/20 05:49 Prothrombin Time 11.4 SEC (9.30-11.50) Prothromb Time International Ratio 1.0 (0.9-1.1) Activated Partial Thromboplast Time 29 SEC (23-33) D-Dimer 1.68 mg/L FEU (0.00-0.49) Lactic Acid Level 1.20 mmol/L (0.4-2.0) Ferritin 1389 NG/ML (8-388) Lactate Dehydrogenase 381 U/L (81-234) Troponin I 0.000 ng/mL (0.000-0.056) C-Reactive Protein, Quantitative 28.1 mg/dL (0.00-0.90) Pro-B-Type Natriuretic Peptide 295 pg/mL (0-125) Lipase 270 U/L (73-393) White Blood Count 3.4 K/UL (4.8-10.8) Red Blood Count 4.58 M/UL (4.70-6.10) Hemoglobin 13.7 G/DL (14.2-18.0) Hematocrit 41.4 % (42.0-52.0) Mean Corpuscular Volume 90 FL (80-99) Mean Corpuscular Hemoglobin 29.8 PG (27.0-31.0) Mean Corpuscular Hemoglobin Concent 33.0 G/DL (32.0-36.0) Red Cell Distribution Width 12.0 % (11.6-14.8) Platelet Count 584 K/UL (150-450) Mean Platelet Volume 4.8 FL (6.5-10.1) Neutrophils (%) (Auto) % (45.0-75.0) Lymphocytes (%) (Auto) % (20.0-45.0) Monocytes (%) (Auto) % (1.0-10.0) Eosinophils (%) (Auto) % (0.0-3.0) Basophils (%) (Auto) % (0.0-2.0) Differential Total Cells Counted 100 Neutrophils % (Manual) 77 % (45-75) Lymphocytes % (Manual) 21 % (20-45) Monocytes % (Manual) 2 % (1-10) Eosinophils % (Manual) 0 % (0-3) Basophils % (Manual) 0 % (0-2) Band Neutrophils 0 % (0-8) Platelet Estimate Increased Platelet Morphology Normal Red Blood Cell Morphology Normal Total Bilirubin 0.5 MG/DL (0.2-1.0) Aspartate Amino Transf (AST/SGOT) 36 U/L (15-37) Alanine Aminotransferase (ALT/SGPT) 33 U/L (12-78) Alkaline Phosphatase 63 U/L (46-116) Total Protein 7.6 G/DL (6.4-8.2) Albumin 2.2 G/DL (3.4-5.0) Globulin 5.4 g/dL Albumin/Globulin Ratio 0.4 (1.0-2.7) Sodium Level 141 MMOL/L (136-145) Potassium Level 3.8 MMOL/L (3.5-5.1) Chloride Level 107 MMOL/L (98-107) Carbon Dioxide Level 27 MMOL/L (21-32) Anion Gap 7 mmol/L (5-15) Blood Urea Nitrogen 16 mg/dL (7-18) Creatinine 0.7 MG/DL (0.55-1.30) Estimat Glomerular Filtration Rate > 60 mL/min (>60) Glucose Level 141 MG/DL (74-106) Calcium Level 9.2 MG/DL (8.5-10.1) Phosphorus Level 3.2 MG/DL (2.5-4.9) Magnesium Level 2.1 MG/DL (1.8-2.4) POC Whole Blood Glucose 127 MG/DL (74-106) EKG Diagnostic Results Troponin ordered: Yes Rate: normal Rhythm: NSR ST Segments: no acute changes ASA given to the pt in ED: No Rhythm Strip Diag. Results EP Interpretation: yes Rhythm: NSR, no PVC's, no ectopy Chest X-Ray Diagnostic Results Chest X-Ray Diagnostic Results : Chest X-Ray Ordered: Yes # of Views/Limited/Complete: 1 View Indication: Shortness of Breath EP Interpretation: Yes Interpretation: no pneumothorax, other - bilateral patchy opacities Impression: Other - COVID Electronically Signed by: Electronically signed by Mando Wyman MD Last Vital Signs Date Time Temp Pulse Resp B/P (MAP) Pulse Ox O2 Delivery O2 Flow Rate FiO2 08/29/20 11:11 98.4 93 20 103/70 (81) 90 Room Air Status: improved Disposition: ADMITTED INPATIENT Condition: Serious Scripts Dexamethasone (DEXAMETHASONE) 6 Mg Tablet 6 MG PO DAILY for 7 Days, #7 TAB Prov: Jaden Velez 08/31/20 Mando Wyman MD Aug 29, 2020 12:23
[2020-08-29 12:31] LABS: ANION GAP 9 mmol/L (5-15); BLOOD UREA NITROGEN 9 mg/dL (7-18); CARBON DIOXIDE 25 MMOL/L (21-32); CHLORIDE 99 MMOL/L (98-107); CREATININE 0.8 MG/DL (0.55-1.30); POTASSIUM 3.3 MMOL/L (3.5-5.1); SODIUM 133 MMOL/L (136-145)
[2020-08-29] MEDS ORDERED: dexAMETHasone 10mg/ml Inj IV ONE (12:45)
[2020-08-29] MEDS ORDERED: Azithromycin 500 MG in NS 275 ML IV ONE (12:45)
[2020-08-29] MEDS ORDERED: Enoxaparin 40mg Inj SUBQ ONE (12:45)
[2020-08-29] MEDS ORDERED: cefTRIAXone 1 GM in NS 55 ML IVPB ONE (12:45)
[2020-08-29 12:47] LABS: ALANINE AMINOTRANSFERASE 27 U/L (12-78); ALBUMIN 2.2 G/DL (3.4-5.0); ALBUMIN/GLOBULIN RATIO 0.4 (1.0-2.7); ALKALINE PHOSPHATASE 64 U/L (46-116); ASPARTATE AMINO TRANSFERASE 39 U/L (15-37); BILIRUBIN,TOTAL 0.6 MG/DL (0.2-1.0); FERRITIN 1389 NG/ML (8-388); LACTATE DEHYDROGENASE 381 U/L (81-234)
--- NOTE | 2020-08-29 12:58 | Diagnostic Imaging Report ---
Indication: Shortness of breath Technique: One view of the chest Comparison: 07/31/2014 Findings: Interim development of extensive bilateral infiltrates, patchy and streaky in a mostly peripheral peribronchovascular distribution.. The pleural spaces are clear. The heart size is normal Impression: Extensive bilateral infiltrates, likely multifocal pneumonia, likely viral
--- NOTE | 2020-08-29 14:16 | NUR ---
report given to karen kaur patient is to be transferd to room 419-2 via [facility]
--- NOTE | 2020-08-29 14:35 | NUR ---
ED Nurse Note: PT TRANSFERRED TO MS UNIT WITH ALL BELONGINGS ON MONITOR. NO ACUTE DISTRESS.
--- NOTE | 2020-08-29 15:00 | NUR ---
NURSE NOTES: patient was admitted from ER placed room 409-2 under care dx of Covid positive, hypoxia. no respiratory distress on 2L via NC. no pain at this time. IV on LAC. intact. flushed. checked and counted belongings with patient. cell phone, flip phone at the bedside. skin intact. no pressure injuries noted. patient is ambulatory, steady gait. droplet and contact isolation d/t positive Covid. PPE at all times. bed in the lowest position and locked. call light within reach.
[2020-08-29 15:17] VITALS: BP 154/94
--- NOTE | 2020-08-29 15:44 | History & Physical ---
History and Physical History & Physicial Attending physician: Dr. Moura Reason for admission: COVID-19 pneumonia HPI: This is a 78-year-old male with history of hypertension who presented to the ED for evaluation of cough, and body aches x2 weeks. He denied shortness of breath, fever, sick contacts or any other associated symptoms. However he was found to be saturating at 90% on room air on arrival. Now he is saturating at 91 to 93% on 2 L nasal cannula. Patient tested positive for COVID-19 via rapid gene assay. His chest x-ray is notable for extensive bilateral infiltrates, likely multifocal pneumonia. He was treated with dexamethasone, azithromycin, ceftriaxone, and Lovenox in the ER and was admitted to the hospital for further management. PMHx: Hypertension Meds: Valsartan Allergies: No known allergies FHx: Noncontributory Personal/Social Hx: Lives at home with a roommate ROS: Negative except mentioned in HPI PE: VS: BP 154/94, HR 72, RR 20, wt 70 kg, ht 170 cm General: Patient laying in bed showing normal work of breathing on 2 L nasal cannula. NAD HEENT: Head examination reveals that the head is normocephalic, atraumatic without deformity or unusual swelling. Pupils are round, reactive to light and accommodation normally. There is no nystagmus, lid lag or exophthalmos. Wearing facemask Chest and Lung: Reveals clear, normal, symmetrical breath sounds with no adventitious sound. Expansion is normal. There are no surgical scars. Cardiovascular: Reveals normal S1, S2 without murmurs, rubs or clicks Abdomen: Soft with no tenderness or organomegaly Rectal: Deferred Musculoskeletal: There is no tenderness to palpation. Range of motion is normal Neurological: Cranial nerves II to XII are intact. Gait is normal without ataxia. DTRs are normal. Babinski is downgoing. Laboratory data: Lab testing shows WBC 5.2, JO globin 13.6, hematocrit 41.1, platelet count 545 Chemistries sodium 133, potassium 3.3 Impression and recommendation: 1. COVID-19 pneumonia with hypoxia -Given hypoxia and x-ray findings, we will continue steroids and broad- spectrum antibiotics -We will continue supplemental oxygen - will consult ID - defer use of remdesivir to ID specialist 2. Hyponatremia -IVF -Monitor sodium - will consult nephro 3. Hypokalemia -IVF -Monitor potassium - will consult nephro 4. Hyperglycemia without history of diabetes mellitus -Likely steroid-induced -We will monitor blood glucose and will initiate insulin if needed 5. Elevated inflammatory markers -We will continue Lovenox for DVT prophylaxis 6. Transaminitis, likely secondary to #1 -Trend AST and ALT The care for this patient was discussed with my supervising physician. Time spent for this case was approximately 31 minutes. Jaden Velez Aug 29, 2020 15:44
[2020-08-29 16:59] VITALS: BP 124/89
--- NOTE | 2020-08-29 17:49 | NUR ---
NURSE NOTES: Spoke to friend " Samia" who lives with patient. Samia reports patient was already forgetful before start of current illness. Samia confirms Dx of HTN, no DM. Called Dr. Damon office, left message regarding start of HTN med.
--- NOTE | 2020-08-29 19:13 | NUR ---
NURSE HAND-OFF: Important Events on Shift:[Patient admitted from ER ] Patient Status: [stable] Diet: [reg] Pending Orders: [] Pending Results/Labs:[] Pending MD notification:[] Latest Vital Signs: Temperature 98.2 , Pulse 72 , B/P 124 /89 , Respiratory Rate 20 , O2 SAT 96 , Nasal Cannula, O2 Flow Rate 2.0 . Vital Sign Comment: [] Latest Sandoval Fall Score: 45 Fall Risk: High Risk Safety Measures: Call light Within Reach, Bed Alarm Zone 1, Side Rails Side Rails x2, Bed position Low and Locked. Fall Precautions: Patient Fall Education Report given to [Santiago RN].
--- NOTE | 2020-08-29 19:50 | NUR ---
NURSE NOTES: pt bedside blood glucose [address] Moura called and notified of the reading and asked him to call me back for any follow up orders. will await orders. pt is asymptomatic, no acute s/s of distress, no co pain, no co sob and no co difficulty breathing.
[2020-08-29 20:00] VITALS: BP 143/87
--- NOTE | 2020-08-29 20:24 | NUR ---
NURSE NOTES: received pt and report from MARSHA Melendrez. pt alert and oriented x 4 with no acute s/s of distress and no co pain at the moment. Plan of care discussed. pt with no co SOB and difficulty breathing.
--- NOTE | 2020-08-29 22:03 | NUR ---
NURSE NOTES: pt vital signs stable at this time. no acute distress observed. pt not complaining of pain. Addendum: 08/29/20 at 2204 by Santiago Andersen RN no co SOB and difficulty breathing
[2020-08-30] VITALS: BP 140/90
--- NOTE | 2020-08-30 02:35 | NUR ---
NURSE NOTES: pt vital signs stable at this time. no co pain. no s/s of acute distress. no co SOB or difficulty breathing.
[2020-08-30 04:00] VITALS: BP 137/90
--- NOTE | 2020-08-30 04:20 | NUR ---
NURSE NOTES: pt vital signs stable at this time. pt in no acute distress and no s/s of pain observed. no co sob and difficulty breathing
[2020-08-30 05:44] LABS: HEMATOCRIT 41.4 % (42.0-52.0); HEMOGLOBIN 13.7 G/DL (14.2-18.0); MEAN CORPUSCULAR VOLUME 90 FL (80-99); PLATELET COUNT 584 K/UL (150-450); RED BLOOD COUNT 4.58 M/UL (4.70-6.10); WHITE BLOOD COUNT 3.4 K/UL (4.8-10.8)
[2020-08-30 06:13] LABS: ALANINE AMINOTRANSFERASE 33 U/L (12-78); ALBUMIN 2.2 G/DL (3.4-5.0); ALBUMIN/GLOBULIN RATIO 0.4 (1.0-2.7); ALKALINE PHOSPHATASE 63 U/L (46-116); ANION GAP 7 mmol/L (5-15); ASPARTATE AMINO TRANSFERASE 36 U/L (15-37); BILIRUBIN,TOTAL 0.5 MG/DL (0.2-1.0); BLOOD UREA NITROGEN 13 mg/dL (7-18); CALCIUM 9.3 MG/DL (8.5-10.1); CARBON DIOXIDE 28 MMOL/L (21-32); CHLORIDE 101 MMOL/L (98-107); CREATININE 0.8 MG/DL (0.55-1.30); POTASSIUM 4.4 MMOL/L (3.5-5.1); SODIUM 136 MMOL/L (136-145)
--- NOTE | 2020-08-30 07:30 | NUR ---
NURSE HAND-OFF: Important Events on Shift:NA Patient Status: stable Diet: regular Pending Orders: NA Pending Results/Labs:NA Pending MD notification:NA Latest Vital Signs: Temperature 98.1 , Pulse 62 , B/P 137 /90 , Respiratory Rate 18 , O2 SAT 97 , Nasal Cannula, O2 Flow Rate 2.0 . Vital Sign Comment: stable through the shift Latest Sandoval Fall Score: 45 Fall Risk: High Risk Safety Measures: Call light Within Reach, Bed Alarm Zone 1, Side Rails Side Rails x2, Bed position Low and Locked. Fall Precautions: Patient Fall Education Report given to MARSHA Ayala.
[2020-08-30 08:00] VITALS: BP 92/59
--- NOTE | 2020-08-30 08:30 | NUR ---
NURSE NOTES: RN received the report from Santiago. RN received the patient ambulating on room air showing no s/s of respiratory distress or pain. Patient now wearing NC at 2 L. IV patent, flushed, intact, dry and asymptomatic. Bed in lowest position and locked. Side rails up X2. Call light and urinal within reach. RN made ROSINA Velez aware of high blood glucose of 187 and he said he will keep monitoring. RN Will continue to monitor.
--- NOTE | 2020-08-30 09:32 | Consultation ---
History of Present Illness General Chief Complaint: Upper Respiratory Illness Reason for Consultation: Hyponatremia Present Illness HPI This is a 78-year-old male with history of hypertension who presented to the ED for evaluation of cough, and body aches x2 weeks. He denied shortness of breath, fever, sick contacts or any other associated symptoms. However he was found to be saturating at 90% on room air on arrival. Now he is saturating at 91 to 93% on 2 L nasal cannula. Patient tested positive for COVID-19 via rapid gene assay. His chest x-ray is notable for extensive bilateral infiltrates, likely multifocal pneumonia. He was treated with dexamethasone, azithromycin, ceftriaxone, and Lovenox in the ER and was admitted to the hospital for further management. PMHx: Hypertension Meds: Valsartan Allergies: No known allergies FHx: Noncontributory Allergies: Coded Allergies: No Known Allergies (Unverified , 01/22/19) Medication History Scheduled Valsartan (Diovan), 160 MG ORAL DAILY, (Reported) Scheduled PRN Ondansetron (Zofran), 4 MG ORAL Q6H PRN for Nausea & Vomiting, (Reported) Miscellaneous Medications [No Home Meds], (Reported) Discontinued Medications Levofloxacin (Levofloxacin*), 500 MG ORAL DAILY Discontinued Reason: Therapy completed Phenazopyridine Hcl* (Pyridium*), 200 MG ORAL THREE TIMES A DAY Discontinued Reason: Therapy completed Patient History Healthcare decision maker Resuscitation status Advanced Directive on File Review of Systems All Other Systems: negative except mentioned in HPI Physical Exam General Appearance: no apparent distress Lines, tubes and drains: peripheral HEENT: normocephalic, atraumatic Neck: non-tender, normal alignment Respiratory/Chest: chest wall non-tender, lungs clear Cardiovascular/Chest: normal peripheral pulses, normal rate, regular rhythm Abdomen: normal bowel sounds, non tender Extremities: no edema Last 24 Hour Vital Signs Date Time Temp Pulse Resp B/P (MAP) Pulse Ox O2 Delivery O2 Flow Rate FiO2 08/30/20 08:00 97.7 98 17 92/59 (70) 97 08/30/20 04:00 98.1 62 18 137/90 (106) 97 08/30/20 00:00 98.1 72 18 140/90 (107) 95 08/29/20 20:39 Nasal Cannula 2.0 08/29/20 20:00 98.6 67 18 143/87 (105) 98 08/29/20 16:59 124/89 (101) 08/29/20 15:30 Nasal Cannula 2.0 08/29/20 15:17 98.2 72 20 154/94 (114) 96 08/29/20 14:12 98.4 86 120/70 96 Nasal Cannula 2.0 08/29/20 12:00 90 23 Nasal Cannula 2.0 94 08/29/20 12:00 98.4 90 23 114/68 94 Nasal Cannula 2.0 08/29/20 11:11 98.4 93 20 103/70 (81) 90 Room Air Intake and Output 08/29/20 08/30/20 19:00 07:00 Intake Total 750 ml 1090 ml Output Total 800 ml Balance 750 ml 290 ml Intake Oral 700 ml 540 ml IV Total 50 ml 550 ml Output Urine Total 800 ml # Voids 1 5 Laboratory Tests Test 08/29/20 11:46 08/29/20 16:44 08/29/20 19:39 08/30/20 04:00 White Blood Count 5.2 K/UL (4.8-10.8) 3.4 K/UL (4.8-10.8) L Red Blood Count 4.58 M/UL (4.70-6.10) L 4.58 M/UL (4.70-6.10) L Hemoglobin 13.6 G/DL (14.2-18.0) L 13.7 G/DL (14.2-18.0) L Hematocrit 41.1 % (42.0-52.0) L 41.4 % (42.0-52.0) L Mean Corpuscular Volume 90 FL (80-99) 90 FL (80-99) Mean Corpuscular Hemoglobin 29.7 PG (27.0-31.0) 29.8 PG (27.0-31.0) Mean Corpuscular Hemoglobin Concent 33.1 G/DL (32.0-36.0) 33.0 G/DL (32.0-36.0) Red Cell Distribution Width 11.8 % (11.6-14.8) 12.0 % (11.6-14.8) Platelet Count 545 K/UL (150-450) H 584 K/UL (150-450) H Mean Platelet Volume 5.1 FL (6.5-10.1) L 4.8 FL (6.5-10.1) L Neutrophils (%) (Auto) 73.8 % (45.0-75.0) % (45.0-75.0) Lymphocytes (%) (Auto) 17.6 % (20.0-45.0) L % (20.0-45.0) Monocytes (%) (Auto) 6.9 % (1.0-10.0) % (1.0-10.0) Eosinophils (%) (Auto) 1.5 % (0.0-3.0) % (0.0-3.0) Basophils (%) (Auto) 0.3 % (0.0-2.0) % (0.0-2.0) Prothrombin Time 11.4 SEC (9.30-11.50) Prothromb Time International Ratio 1.0 (0.9-1.1) Activated Partial Thromboplast Time 29 SEC (23-33) D-Dimer 1.68 mg/L FEU (0.00-0.49) H Sodium Level 133 MMOL/L (136-145) L 136 MMOL/L (136-145) Potassium Level 3.3 MMOL/L (3.5-5.1) L 4.4 MMOL/L (3.5-5.1) Chloride Level 99 MMOL/L (98-107) 101 MMOL/L (98-107) Carbon Dioxide Level 25 MMOL/L (21-32) 28 MMOL/L (21-32) Anion Gap 9 mmol/L (5-15) 7 mmol/L (5-15) Blood Urea Nitrogen 9 mg/dL (7-18) 13 mg/dL (7-18) Creatinine 0.8 MG/DL (0.55-1.30) 0.8 MG/DL (0.55-1.30) Estimat Glomerular Filtration Rate > 60 mL/min (>60) > 60 mL/min (>60) Glucose Level 156 MG/DL (74-106) H 174 MG/DL (74-106) H Lactic Acid Level 1.20 mmol/L (0.4-2.0) Calcium Level 9.0 MG/DL (8.5-10.1) 9.3 MG/DL (8.5-10.1) Ferritin 1389 NG/ML (8-388) H Total Bilirubin 0.6 MG/DL (0.2-1.0) 0.5 MG/DL (0.2-1.0) Aspartate Amino Transf (AST/SGOT) 39 U/L (15-37) H 36 U/L (15-37) Alanine Aminotransferase (ALT/SGPT) 27 U/L (12-78) 33 U/L (12-78) Alkaline Phosphatase 64 U/L (46-116) 63 U/L (46-116) Lactate Dehydrogenase 381 U/L (81-234) H Troponin I 0.000 ng/mL (0.000-0.056) C-Reactive Protein, Quantitative 28.1 mg/dL (0.00-0.90) H Pro-B-Type Natriuretic Peptide 295 pg/mL (0-125) H Total Protein 7.3 G/DL (6.4-8.2) 7.6 G/DL (6.4-8.2) Albumin 2.2 G/DL (3.4-5.0) L 2.2 G/DL (3.4-5.0) L Globulin 5.1 g/dL 5.4 g/dL Albumin/Globulin Ratio 0.4 (1.0-2.7) L 0.4 (1.0-2.7) L Lipase 270 U/L (73-393) POC Whole Blood Glucose 147 MG/DL (74-106) H 186 MG/DL (74-106) H Neutrophils % (Manual) Pending Lymphocytes % (Manual) Pending Platelet Estimate Pending Platelet Morphology Pending Test 08/30/20 06:04 POC Whole Blood Glucose 182 MG/DL (74-106) H Microbiology Date/Time Source Procedure Growth Status 08/29/20 11:46 Nasopharynx SARS-CoV-2 RdRp Gene Assay - Final Complete Height (Feet): 5 Height (Inches): 7.00 Weight (Pounds): 156 Medications Current Medications Medications (Trade) Dose Ordered Sig/Beltran Route PRN Reason Start Time Stop Time Status Last Admin Dose Admin Azithromycin 500 mg/Dextrose 275 ml @ 275 mls/hr Q24HRS IV 08/30/20 12:00 09/05/20 12:59 Ceftriaxone Sodium 1 gm/ Dextrose 55 ml @ 110 mls/hr Q24H IVPB 08/30/20 11:00 09/06/20 10:59 Dexamethasone Sodium Phosphate (Decadron 10mg/ ml Inj) 6 mg DAILY IV 08/30/20 09:00 09/07/20 09:01 Dextrose (Dextrose 50%) 25 ml Q30M PRN IV Hypoglycemia 08/29/20 15:30 11/27/20 15:29 Dextrose (Dextrose 50%) 50 ml Q30M PRN IV Hypoglycemia 08/29/20 15:30 11/27/20 15:29 Enoxaparin Sodium (Lovenox) 40 mg DAILY SUBQ 08/30/20 09:00 11/28/20 08:59 Sodium Chloride 1,000 ml @ 50 mls/hr Q20H IVLG 08/29/20 16:30 09/28/20 16:29 08/29/20 16:30 Assessment/Plan Diagnosis [facility] I: #Hyponatremia- hypovolumic- #hypokalemia #COVID pneumonia #HTN #DM #HLD - IVF - replete lytes - NS at 50 cc/hr - on dexa - monitor BP - monitor lytes - ID consulted Time spent 65min Alex Vo M.D. Aug 30, 2020 09:32
[2020-08-30] MEDS: dexAMETHasone 10mg/ml Inj IV SCH (10:40)
[2020-08-30] MEDS: Enoxaparin 40mg Inj SUBQ SCH (10:41)
[2020-08-30] MEDS ORDERED: cefTRIAXone 1 GM in D5W 55 ML IVPB SCH (11:00)
--- NOTE | 2020-08-30 11:49 | NUR ---
CASE MANAGEMENT:INITIAL REVIEW 70 YR OLD MALE PRESENTED TO ED FROM HOME CC;UPPER RESPIRATORY ILLNESS SI;COVID PNEUMONIA. HYPOXIA. 98.4 93 23 154/94 94% 2L NC PLT+ 584 NA- 133 K- 3.3 GLU+ 156 FERRITIN 1389 AST+ 39 LDH+ 381 CRP+ 28.1 BNP+ 295 ALB- 2.2 D-DIMER+ 1.68 COVID RAPID ~ POSITIVE CXR ~ Extensive bilateral infiltrates, likely multifocal pneumonia, likely viral IS;DECADRON IV ROCEPHIN IV ZITHROMAX IV LOVENOX SQ ADMITTED TO MED SURG MED SURG STATUS DCP;PENDING HOSPITAL STAY
--- NOTE | 2020-08-30 11:59 | Consultation ---
DATE OF CONSULTATION: 08/30/2020 INFECTIOUS DISEASE CONSULTATION CONSULTING PHYSICIAN: Suhail Jarrett MD. REFERRING PHYSICIAN: Jair Moura MD. REASON FOR CONSULTATION: COVID-19 pneumonia. HISTORY OF PRESENTING ILLNESS: This is a 70-year-old gentleman with history of hypertension, who came in with cough, shortness of breath along with body aches. He tested positive for COVID-19 pneumonia and an Infectious Diseases consultation has been obtained for antibiotics. PAST MEDICAL HISTORY: History of hypertension. SOCIAL HISTORY: He does not smoke, drink, or use drugs. FAMILY HISTORY: Noncontributory. REVIEW OF SYSTEMS: RESPIRATORY: He has cough. No fever or chills. He has shortness of breath. No chest pain. CARDIAC: No chest pain. No palpitation. No dizziness. No syncope. GASTROINTESTINAL: No nausea. No vomiting. No abdominal pain or diarrhea. MEDICATIONS: As an inpatient, he is on azithromycin, ceftriaxone, dexamethasone, Lovenox. ALLERGIES: No known drug allergies. PHYSICAL EXAMINATION: VITAL SIGNS: Temperature 97.7, T-max of 98.6, pulse 98, respiratory rate 17, blood pressure 92/59. O2 saturation of 97% on 2 liters of oxygen. Examination is deferred due to COVID-19. LABORATORY DATA: White count 3.4, hemoglobin 13.7, hematocrit 41.4, MCV 90, platelet count of 584,000, neutrophils of 77%. Sodium 136, potassium 4.4, chloride 101, bicarb 28, BUN 13, creatinine 0.8. Glucose 174. Calcium 9.3. Total bilirubin 0.5. AST 36, ALT 33, and alkaline phosphatase 63. Total protein 7.6, albumin 2.2. Lipase of 270. COVID-19 test on 08/29/2020 was positive. Chest x-ray is showing extensive bilateral infiltrates. ASSESSMENT: This is a 70-year-old gentleman with history of hypertension, who comes in with cough and shortness of breath and is found to have, 1. COVID-19 pneumonia. He is on 2 liters of oxygen with O2 saturation of 97%. 2. Hypertension. PLAN: 1. Discontinue ceftriaxone and azithromycin. 2. Continue dexamethasone, day #2. 3. We will start one dose of ivermectin. 4. We will follow up the patient clinically. I would like to thank Dr. Moura for this consultation. Suhail Jarrett M.D. DR: LEWIS JOB#: [id number] CC:
[2020-08-30 12:00] VITALS: BP 102/70
[2020-08-30] MEDS ORDERED: Azithromycin 500 MG in D5W 275 ML IV SCH (12:00)
--- NOTE | 2020-08-30 13:49 | Pulmonology Progress Note ---
Subjective Interval Events: none major reported per nursing Constitutional: Reports: no symptoms HEENT: Repors: no symptoms Respiratory: Reports: no symptoms Cardiovascular: Reports: no symptoms Gastrointestinal/Abdominal: Reports: no symptoms Allergies: Coded Allergies: No Known Allergies (Unverified , 01/22/19) Objective Last 24 Hour Vital Signs Date Time Temp Pulse Resp B/P (MAP) Pulse Ox O2 Delivery O2 Flow Rate FiO2 08/30/20 08:00 97.7 98 17 92/59 (70) 97 08/30/20 04:00 98.1 62 18 137/90 (106) 97 08/30/20 00:00 98.1 72 18 140/90 (107) 95 08/29/20 20:39 Nasal Cannula 2.0 08/29/20 20:00 98.6 67 18 143/87 (105) 98 08/29/20 16:59 124/89 (101) 08/29/20 15:30 Nasal Cannula 2.0 08/29/20 15:17 98.2 72 20 154/94 (114) 96 08/29/20 14:12 98.4 86 120/70 96 Nasal Cannula 2.0 Intake and Output 08/29/20 08/30/20 19:00 07:00 Intake Total 750 ml 1090 ml Output Total 800 ml Balance 750 ml 290 ml Intake Oral 700 ml 540 ml IV Total 50 ml 550 ml Output Urine Total 800 ml # Voids 1 5 HEENT: atraumatic Respiratory: lungs clear Cardiovascular: normal rate, regular rhythm Abdomen: soft, non tender Microbiology Date/Time Source Procedure Growth Status 08/29/20 11:46 Nasopharynx SARS-CoV-2 RdRp Gene Assay - Final Complete Laboratory Tests 08/29/20 16:44: POC Whole Blood Glucose 147H 08/29/20 19:39: POC Whole Blood Glucose 186H 08/30/20 04:00: White Blood Count 3.4L, Red Blood Count 4.58L, Hemoglobin 13.7L, Hematocrit 41.4L, Mean Corpuscular Volume 90, Mean Corpuscular Hemoglobin 29.8, Mean Corpuscular Hemoglobin Concent 33.0, Red Cell Distribution Width 12.0, Platelet Count 584H, Mean Platelet Volume 4.8L, Neutrophils (%) (Auto) , Lymphocytes (%) (Auto) , Monocytes (%) (Auto) , Eosinophils (%) (Auto) , Basophils (%) (Auto) , Differential Total Cells Counted 100, Neutrophils % (Manual) 77H, Lymphocytes % (Manual) 21, Monocytes % (Manual) 2, Eosinophils % (Manual) 0, Basophils % (Manual) 0, Band Neutrophils 0, Platelet Estimate IncreasedH, Platelet Morphology Normal, Red Blood Cell Morphology Normal, Sodium Level 136, Potassium Level 4.4, Chloride Level 101, Carbon Dioxide Level 28, Anion Gap 7, Blood Urea Nitrogen 13, Creatinine 0.8, Estimat Glomerular Filtration Rate > 60, Glucose Level 174H, Calcium Level 9.3, Total Bilirubin 0.5, Aspartate Amino Transf (AST/SGOT) 36, Alanine Aminotransferase (ALT/SGPT) 33, Alkaline Phosphatase 63, Total Protein 7.6, Albumin 2.2L, Globulin 5.4, Albumin/Globulin Ratio 0.4L 08/30/20 06:04: POC Whole Blood Glucose 182H 08/30/20 12:38: POC Whole Blood Glucose 174H Current Medications Medications (Trade) Dose Ordered Sig/Beltran Route PRN Reason Start Time Stop Time Status Last Admin Dose Admin Dexamethasone Sodium Phosphate (Decadron 10mg/ ml Inj) 6 mg DAILY IV 08/30/20 09:00 09/07/20 09:01 08/30/20 10:40 Dextrose (Dextrose 50%) 25 ml Q30M PRN IV Hypoglycemia 08/29/20 15:30 11/27/20 15:29 Dextrose (Dextrose 50%) 50 ml Q30M PRN IV Hypoglycemia 08/29/20 15:30 11/27/20 15:29 Enoxaparin Sodium (Lovenox) 40 mg DAILY SUBQ 08/30/20 09:00 11/28/20 08:59 08/30/20 10:41 Ivermectin (StromectoL) 15 mg ONCE ORAL 08/30/20 13:00 08/30/20 15:00 08/30/20 12:43 Sodium Chloride 1,000 ml @ 50 mls/hr Q20H IVLG 08/29/20 16:30 09/28/20 16:29 08/30/20 11:57 Assessment/Plan Assessment/Plan 1. COVID-19 pneumonia with hypoxia -Given hypoxia and x-ray findings, we will continue steroids -We will continue supplemental oxygen; currently saturating at 98% on 2L NC - seen by ID - defer use of remdesivir to ID specialist - one dose of ivermectin per ID 2. Hyponatremia -IVF -Monitor sodium - will consult nephro 3. Hypokalemia -IVF -Monitor potassium - will consult nephro 4. Hyperglycemia without history of diabetes mellitus -Likely steroid-induced -We will monitor blood glucose and will initiate insulin if needed 5. Elevated inflammatory markers -We will continue Lovenox for DVT prophylaxis 6. Transaminitis, likely secondary to #1 -Trend AST and ALT The care for this patient was discussed with my supervising physician. Time spent for this case was approximately 31 minutes. Jaden Velez Aug 30, 2020 13:49
[2020-08-30 16:00] VITALS: BP 124/80
--- NOTE | 2020-08-30 19:30 | NUR ---
NURSE NOTES: Received report from MARSHA Ford. Pt is in bed with no signs of distress on 2L NC. IVF infusing well, call light within reach, bed locked and in lowest position. Will continue to monitor.
--- NOTE | 2020-08-30 19:30 | NUR ---
NURSE NOTES: RN checked blood glucose after the patient had dinner at 7:30 pm. BG is 263. Patient is asymptomatic. RN endorsed it to MARSHA Morales.
[2020-08-30 20:00] VITALS: BP 123/76
--- NOTE | 2020-08-30 20:05 | NUR ---
NURSE HAND-OFF: Important Events on Shift:blood glucose taken after the patient had dinner Patient Status: stable Diet: regular Pending Orders: n/a Pending Results/Labs:n/a Pending MD notification:n/a Latest Vital Signs: Temperature 98.2 , Pulse 71 , B/P 124 /80 , Respiratory Rate 18 , O2 SAT 95 , Nasal Cannula, O2 Flow Rate 2.0 . Vital Sign Comment: stable Latest Sandoval Fall Score: 45 Fall Risk: High Risk Safety Measures: Call light Within Reach, Bed Alarm Zone 1, Side Rails Side Rails x2, Bed position Low and Locked. Fall Precautions: Patient Fall Education Report given to
[2020-08-31] VITALS: BP 150/74
[2020-08-31 04:00] VITALS: BP 129/80
[2020-08-31 05:11] LABS: ANION GAP 7 mmol/L (5-15); BLOOD UREA NITROGEN 16 mg/dL (7-18); CALCIUM 9.2 MG/DL (8.5-10.1); CARBON DIOXIDE 27 MMOL/L (21-32); CHLORIDE 107 MMOL/L (98-107); CREATININE 0.7 MG/DL (0.55-1.30); PHOSPHORUS 3.2 MG/DL (2.5-4.9); POTASSIUM 3.8 MMOL/L (3.5-5.1); SODIUM 141 MMOL/L (136-145)
--- NOTE | 2020-08-31 07:10 | NUR ---
nurse notes received patient sitting on the edge of the bed, patient awake, alert, oriented x4, no sign of distress,denies pain or discomfort, on O2 at 2lpm via NC sat 93 %. IVF patent and infusing well, plan of care was discussed verbalized understanding 4 P's in progress call light w/n reach will continue to monitor patient condition natasha betancur
--- NOTE | 2020-08-31 07:10 | NUR ---
NURSE HAND-OFF: Important Events on Shift: BS stable Patient Status: calm Diet: regular Pending Orders: Pending Results/Labs: Pending MD notification: Latest Vital Signs: Temperature 97.3 , Pulse 75 , B/P 129 /80 , Respiratory Rate 16 , O2 SAT 97 , Nasal Cannula, O2 Flow Rate 2.0 . Vital Sign Comment: VSS Latest Sandoval Fall Score: 45 Fall Risk: High Risk Safety Measures: Call light Within Reach, Bed Alarm Zone 1, Side Rails Side Rails x2, Bed position Low and Locked. Fall Precautions: Patient Fall Education Report given to MARSHA Moreno.
[2020-08-31 08:10] VITALS: BP 94/63
--- NOTE | 2020-08-31 08:10 | Nephrology Progress Note ---
Assessment/Plan Plan #Hyponatremia- hypovolumic- #hypokalemia #COVID pneumonia #HTN #DM #HLD - IVF - replete lytes - NS at 50 cc/hr - on dexa - monitor BP - monitor lytes - ID consulted Time spent 65min Subjective ROS Limited/Unobtainable: No Constitutional: Reports: weakness Objective Objective Last 24 Hour Vital Signs Date Time Temp Pulse Resp B/P (MAP) Pulse Ox O2 Delivery O2 Flow Rate FiO2 08/31/20 04:00 97.3 75 16 129/80 (96) 97 08/31/20 00:00 97.7 60 18 150/74 (99) 97 08/30/20 21:00 Nasal Cannula 2.0 08/30/20 20:00 97.6 65 18 123/76 (92) 95 08/30/20 16:00 98.2 71 18 124/80 (95) 95 08/30/20 12:00 97.8 83 18 102/70 (81) 97 08/30/20 09:00 Nasal Cannula 2.0 Intake and Output 08/30/20 08/31/20 19:00 07:00 Intake Total 1000 ml 900 ml Output Total 950 ml Balance 1000 ml -50 ml Intake Oral 1000 ml 900 ml Output Urine Total 950 ml # Voids 5 Laboratory Tests 08/30/20 12:38: POC Whole Blood Glucose 174H 08/30/20 19:40: POC Whole Blood Glucose 263H 08/30/20 21:50: POC Whole Blood Glucose 171H 08/31/20 04:00: Sodium Level 141, Potassium Level 3.8, Chloride Level 107, Carbon Dioxide Level 27, Anion Gap 7, Blood Urea Nitrogen 16, Creatinine 0.7, Estimat Glomerular Filtration Rate > 60, Glucose Level 141H, Calcium Level 9.2, Phosphorus Level 3.2, Magnesium Level 2.1 08/31/20 05:49: POC Whole Blood Glucose 127H Height (Feet): 5 Height (Inches): 7.00 Weight (Pounds): 156 Objective General Appearance: no apparent distress Lines, tubes and drains: peripheral HEENT: normocephalic, atraumatic Neck: non-tender, normal alignment Respiratory/Chest: chest wall non-tender, lungs clear Cardiovascular/Chest: normal peripheral pulses, normal rate, regular rhythm Abdomen: normal bowel sounds, non tender Extremities: no edema Pirouz,Aslan M.D. Aug 31, 2020 08:10
[2020-08-31] MEDS: Enoxaparin 40mg Inj SUBQ SCH (08:17)
[2020-08-31] MEDS: dexAMETHasone 10mg/ml Inj IV SCH (08:18)
--- NOTE | 2020-08-31 10:04 | Pulmonology Progress Note ---
Subjective ROS Limited/Unobtainable: No Interval Events: none major reported per nursing Constitutional: Reports: no symptoms, other - feels better HEENT: Repors: no symptoms Respiratory: Reports: no symptoms Cardiovascular: Reports: no symptoms Gastrointestinal/Abdominal: Reports: no symptoms Allergies: Coded Allergies: No Known Allergies (Unverified , 01/22/19) Objective Last 24 Hour Vital Signs Date Time Temp Pulse Resp B/P (MAP) Pulse Ox O2 Delivery O2 Flow Rate FiO2 08/31/20 08:10 96.8 86 17 94/63 (73) 93 08/31/20 08:10 Nasal Cannula 2.0 08/31/20 04:00 97.3 75 16 129/80 (96) 97 08/31/20 00:00 97.7 60 18 150/74 (99) 97 08/30/20 21:00 Nasal Cannula 2.0 08/30/20 20:00 97.6 65 18 123/76 (92) 95 08/30/20 16:00 98.2 71 18 124/80 (95) 95 08/30/20 12:00 97.8 83 18 102/70 (81) 97 Intake and Output 08/30/20 08/31/20 19:00 07:00 Intake Total 1000 ml 950 ml Output Total 950 ml Balance 1000 ml 0 ml Intake Oral 1000 ml 900 ml IV Total 50 ml Output Urine Total 950 ml # Voids 5 HEENT: atraumatic Respiratory: lungs clear Cardiovascular: normal rate, regular rhythm Abdomen: soft, non tender Microbiology Date/Time Source Procedure Growth Status 08/29/20 11:46 Nasopharynx SARS-CoV-2 RdRp Gene Assay - Final Complete 08/29/20 11:46 Blood Blood Culture - Preliminary NO GROWTH AFTER 24 HOURS Resulted 08/29/20 11:46 Blood Blood Culture - Preliminary NO GROWTH AFTER 24 HOURS Resulted Laboratory Tests 08/30/20 12:38: POC Whole Blood Glucose 174H 08/30/20 19:40: POC Whole Blood Glucose 263H 08/30/20 21:50: POC Whole Blood Glucose 171H 08/31/20 04:00: Sodium Level 141, Potassium Level 3.8, Chloride Level 107, Carbon Dioxide Level 27, Anion Gap 7, Blood Urea Nitrogen 16, Creatinine 0.7, Estimat Glomerular Filtration Rate > 60, Glucose Level 141H, Calcium Level 9.2, Phosphorus Level 3.2, Magnesium Level 2.1 08/31/20 05:49: POC Whole Blood Glucose 127H Current Medications Medications (Trade) Dose Ordered Sig/Beltran Route PRN Reason Start Time Stop Time Status Last Admin Dose Admin Dexamethasone Sodium Phosphate (Decadron 10mg/ ml Inj) 6 mg DAILY IV 08/30/20 09:00 09/07/20 09:01 08/31/20 08:18 Dextrose (Dextrose 50%) 25 ml Q30M PRN IV Hypoglycemia 08/29/20 15:30 11/27/20 15:29 Dextrose (Dextrose 50%) 50 ml Q30M PRN IV Hypoglycemia 08/29/20 15:30 11/27/20 15:29 Enoxaparin Sodium (Lovenox) 40 mg DAILY SUBQ 08/30/20 09:00 11/28/20 08:59 08/31/20 08:17 Sodium Chloride 1,000 ml @ 50 mls/hr Q20H IVLG 08/29/20 16:30 09/28/20 16:29 08/31/20 08:18 Assessment/Plan Assessment/Plan 1. COVID-19 pneumonia with hypoxia -currently saturating well on RA - seen by ID - defer use of remdesivir to ID specialist - s/p one dose of ivermectin per ID - now off azithromycin and ceftriaxone - on dexamethasone -> will transition to oral for discharge 2. Hyponatremia; resolved -IVF -Monitor sodium - nephro following 3. Hypokalemia -IVF -Monitor potassium - nephro following 4. Hyperglycemia without history of diabetes mellitus -Likely steroid-induced -We will monitor blood glucose and will initiate insulin if needed 5. Elevated inflammatory markers -We will continue Lovenox for DVT prophylaxis 6. Transaminitis, likely secondary to #1 -Trend AST and ALT - resolved dc today The care for this patient was discussed with my supervising physician. Time spent for this case was approximately 31 minutes. Jaden Velez Aug 31, 2020 10:04
[2020-08-31] MEDS ORDERED: DEXAMETHASONE6 MG PO (11:26)
[2020-08-31 12:00] VITALS: BP 111/68
--- NOTE | 2020-08-31 12:20 | NUR ---
nurse notes discharge to home obtained, patient agreed with the plan of care, discharge instruction packet handed to patient , discharge teaching done interpreted by TERESSA Ca, all questions verbalized understanding 1220 discharged in stable condition with all belongings taken accompanied by TERESSA to the parking area, discharged via private car MARSHA BOLIVAR
--- NOTE | 2020-09-01 15:29 | Discharge Summary ---
Discharge Summary Discharge Summary _ Date of admission: 08/29/2020 Date of discharge: 08/31/[address] Moura History of Present Illness and Brief Hospital Course Mr. Noriega is a 78-year-old male with history of hypertension who presented to the ED for evaluation of cough, and body aches x2 weeks. He denied shortness of breath, fever, sick contacts, or any other associated symptoms. Patient was found to be saturating at 90% on room air on arrival. He was immediately given supplemental oxygen via nasal cannula and his saturation improved. Patient tested positive for COVID-19 via rapid gene assay in the ER. Chest x-ray was notable for extensive bilateral infiltrates, likely multifocal pneumonia. He was treated with dexamethasone, azithromycin, ceftriaxone, and Lovenox in the ER and was admitted to the hospital for further management. For his COVID-19 pneumonia with hypoxia, he was given 1 dose of ivermectin and his broad-spectrum antibiotics were discontinued. His laboratory studies revealed hyperglycemia without history of diabetes mellitus that was likely steroid-induced. His blood glucose was closely monitored. He presented with an elevated inflammatory markers. He was given Lovenox for DVT prophylaxis. Patient initially presented with elevated AST and ALT, likely secondary to COVID-19 pneumonia. His ALT and AST resolved before discharge. Other than the initial presentation with hypoxia, patient's medical condition remained stable. He remained saturating well on room air after hospitalization. Given his stable medical condition, it was deemed appropriate to transition his steroid from IV to oral and discharge him home. Patient showed no signs of distress and denied pain or discomfort. Patient was discharged home in stable condition on room with stable vitals. Consultants: Nephrology Dr. Vo Infectious disease Dr. Jarrett Discharge Condition Improved and stable Final diagnoses COVID-19 pneumonia Hypertension Hypovolemic hyponatremia Hypokalemia Diabetes mellitus Hyperlipidemia Steroid-induced diabetes mellitus I have been assigned to dictate discharge summary for this account. Jaden Velez Sep 01, 2020 15:29
== END 2020-08-31 12:53 | disposition home or self-care (01) | DRG 177 ==
LOC: EMR 12:28 → 4E 13:24 → EDBEDREQ 14:06 → 4E 15:07
DX: U07.1 COVID-19 (principal); J12.82 Pneumonia due to coronavirus disease 2019; E87.1 Hypo-osmolality and hyponatremia; R09.02 Hypoxemia; E87.6 Hypokalemia; E09.9 Drug or chemical induced diabetes mellitus without complications; T38.0X5A Adverse effect of glucocorticoids and synthetic analogues, initial encounter; Y92.239 Unspecified place in hospital as the place of occurrence of the external cause; I10 Essential (primary) hypertension
CPT/HCPCS: 36415; 71045; 80048; 80053; 82728; 82962; 83605; 83615; 83690; 83735; 83880; 84100; 84484; 85007; 85025; 85379; 85610; 85730; 86140; 87040; 93005; 96365; 96367; 96375; 99285; J7030; U0002